=== PATIENT | female | born 1950 | race Caucasian/White ===

== ENCOUNTER → 2016-12-01 | Outpatient (CLI) | payer MEDICARE ==
[~2016-12-01] MED LIST: ASPI-496 PO; CETI1TAB6 PO; CHOL10002 PO; CLON-365 PO; CLON1PAT2 PO; DESV100T PO; FESO8TAB PO; GABA800T2 PO; HYDR4TAB PO; INSU100I29 SC; INSU100V14 SC; LISI-167 PO; METF500T4 PO; MONT10TA6 PO; QUET300T5 PO; REGADENOSON 0.4 MG/5 ML SYRINGE ONE; ROSU10TA PO
== END | disposition home or self-care (01) ==
LOC: CFH 07:30
PROVIDERS: ATTEND Internal Medicine Cardiovascular Disease
DX: I08.1 Rheumatic disorders of both mitral and tricuspid valves (principal); E11.9 Type 2 diabetes mellitus without complications; F17.200 Nicotine dependence, unspecified, uncomplicated
CPT/HCPCS: 78452; 93017; 93306; A9502; J2785

== ENCOUNTER 2018-09-22 11:37 | Outpatient (CLI) | payer MEDICARE ==
[~2018-09-22 11:37] MED LIST changes: -CLON-365 PO; +CLON1TAB11 PO; -GABA800T2 PO; +GABA800T5 PO; +METF500T17 PO; -METF500T4 PO; -REGADENOSON 0.4 MG/5 ML SYRINGE ONE; -ROSU10TA PO; +ROSU10TA2 PO
== END 2018-09-22 23:59 | disposition home or self-care (01) ==
LOC: RAD 11:37
PROVIDERS: ATTEND Physician Assistant Surgical
DX: Z02.9 Encounter for administrative examinations, unspecified (principal)

== ENCOUNTER 2018-09-27 11:20 | Outpatient (CLI) | payer MEDICARE ==
[2018-09-27] MEDS ORDERED: OMNIPAQUE 350 MG/ML, 100ML BOTTLE ONE (13:32)
== END 2018-09-27 23:59 | disposition home or self-care (01) ==
LOC: RAD 11:20
PROVIDERS: ATTEND Physician Assistant Surgical
DX: K43.5 Parastomal hernia without obstruction or gangrene (principal); K46.9 Unspecified abdominal hernia without obstruction or gangrene
CPT/HCPCS: 74177; Q9967

== ENCOUNTER → 2018-10-25 | Outpatient (CLI) | payer MEDICARE | END | disposition home or self-care (01) | LOC: WOUND 12:52 | PROVIDERS: ATTEND Internal Medicine | DX: T81.31XD Disruption of external operation (surgical) wound, not elsewhere classified, subsequent encounter (principal); S31.109D Unspecified open wound of abdominal wall, unspecified quadrant without penetration into peritoneal cavity, subsequent encounter; E11.51 Type 2 diabetes mellitus with diabetic peripheral angiopathy without gangrene; E11.65 Type 2 diabetes mellitus with hyperglycemia; I12.9 Hypertensive chronic kidney disease with stage 1 through stage 4 chronic kidney disease, or unspecified chronic kidney disease; E11.22 Type 2 diabetes mellitus with diabetic chronic kidney disease; N18.3 Chronic kidney disease, stage 3 (moderate); J43.9 Emphysema, unspecified; E78.2 Mixed hyperlipidemia; G89.4 Chronic pain syndrome; E78.5 Hyperlipidemia, unspecified; E78.00 Pure hypercholesterolemia, unspecified; G47.33 Obstructive sleep apnea (adult) (pediatric); K21.9 Gastro-esophageal reflux disease without esophagitis; F31.9 Bipolar disorder, unspecified; F17.200 Nicotine dependence, unspecified, uncomplicated; Z93.2 Ileostomy status; E66.9 Obesity, unspecified; Z68.25 Body mass index [BMI] 25.0-25.9, adult; Z79.4 Long term (current) use of insulin; Z90.49 Acquired absence of other specified parts of digestive tract; Z90.710 Acquired absence of both cervix and uterus; X58.XXXD Exposure to other specified factors, subsequent encounter; Y83.8 Other surgical procedures as the cause of abnormal reaction of the patient, or of later complication, without mention of misadventure at the time of the procedure | CPT/HCPCS: 97597; G0463 ==

== ENCOUNTER 2018-12-16 13:44 | Emergency (ER) | payer MEDICARE ==
[~2018-12-16] VITALS: Ht 170.2 cm; Wt 70.0 kg
[2018-12-16 16:17] VITALS: BP 121/58
== END 2018-12-16 17:25 | disposition left against medical advice (07) ==
LOC: ED 17:19
DX: R10.84 Generalized abdominal pain (principal); R11.2 Nausea with vomiting, unspecified; R19.7 Diarrhea, unspecified; R10.13 Epigastric pain; E11.9 Type 2 diabetes mellitus without complications; J44.9 Chronic obstructive pulmonary disease, unspecified
CPT/HCPCS: 36415; 74177; 80053; 81001; 83690; 85025; 85610; 99284; Q9967

== ENCOUNTER 2019-05-11 15:07 | Emergency (ER) | payer MEDICARE ==
[~2019-05-11] VITALS: Ht 170.2 cm; Wt 72.7 kg
[~2019-05-11 15:07] MED LIST changes: +GABA-827 PO; +NICO-487 TD; +TRINTELLIX
[2019-05-11 15:43] VITALS: BP 125/44
== END 2019-05-11 17:19 | disposition home or self-care (01) ==
LOC: ED 17:13
DX: S32.2XXA Fracture of coccyx, initial encounter for closed fracture (principal); M54.5 Low back pain; J44.9 Chronic obstructive pulmonary disease, unspecified; E11.9 Type 2 diabetes mellitus without complications; W01.0XXA Fall on same level from slipping, tripping and stumbling without subsequent striking against object, initial encounter; Y93.89 Activity, other specified; Y92.89 Other specified places as the place of occurrence of the external cause; Y99.8 Other external cause status
CPT/HCPCS: 72110; 72220; 99283

== ENCOUNTER 2019-08-29 05:20 | Inpatient (IN) | payer MEDICARE ==
[~2019-08-29] VITALS: Ht 170.2 cm; Wt 81.2 kg
[2019-08-29] MEDS ORDERED: HYDROmorphone 1 MG/ML, 1ML INJ ONE ×2 (05:40→06:42)
[2019-08-29] MEDS ORDERED: ONDANSETRON 2MG/ML, 2ML ONE ×3 (05:40→16:59)
[2019-08-29] MEDS: HYDROmorphone 1 MG/ML, 1ML INJ IVPush PRN ×2 (05:42→06:44)
[2019-08-29] MEDS ORDERED: SODIUM CHLORIDE FLUSH 10ML SYR IVF ONE (06:00)
[2019-08-29] MEDS ORDERED: ONDANSETRON 2MG/ML, 2ML IVPush ONE (06:00)
[2019-08-29] MEDS ORDERED: SODIUM CHLORIDE 0.9% 1,000ML IVBOLUS ONE (06:00)
--- NOTE | 2019-08-29 06:00 | NUR ---
PT TO XRAY.
[2019-08-29 06:12] LABS: BASOPHILS # (AUTO) 0.06 x10^3/uL (0-0.1); BASOPHILS % (AUTO) 0 % (0-1); EOSINOPHILS # (AUTO) 0.24 x10^3/uL (0-0.4); EOSINOPHILS % (AUTO) 2 % (1-7); LYMPHOCYTES # (AUTO) 2.38 x10^3/uL (1-3.4); LYMPHOCYTES % (AUTO) 15 % (22-44); MD NO; MEAN CORPUSCULAR HEMOGLOBIN 29.5 pg (27.0-34.8); MEAN CORPUSCULAR HGB CONC 32.7 g/dL (32.4-35.8); MEAN CORPUSCULAR VOLUME 90.3 fL (80-100); MEAN PLATELET VOLUME 7.8 fL (7.4-10.4); MONOCYTES # (AUTO) 0.85 x10^3/uL (0.2-0.8); MONOCYTES % (AUTO) 5 % (2-9); NEUTROPHILS # (AUTO) 12.22 x10^3/uL (1.8-6.8); NEUTROPHILS % (AUTO) 78 % (42-75); PLATELET COUNT 297 x10^3/uL (130-400); RED BLOOD COUNT 5.45 x10^6/uL (3.82-5.3); RED CELL DISTRIBUTION WIDTH 14.1 % (9.6-15.2)
[2019-08-29 06:15] LABS: ALANINE AMINOTRANSFERASE 16 U/L (12-78); ALBUMIN 3.2 g/dL (3.4-5.0); ANION GAP 5 mmol/L (5-15); CALCIUM 9.7 mg/dL (8.5-10.1); CHLORIDE 104 mmol/L (98-107); CREATININE 1.07 mg/dL (0.55-1.02)
[2019-08-29] MEDS ORDERED: LOSA25TA25 PO (06:15)
[2019-08-29] MEDS ORDERED: LORA-445 PO (06:15)
[2019-08-29 06:17] LABS: ALKALINE PHOSPHATASE 80 U/L (45-117); BILIRUBIN,TOTAL 0.4 mg/dL (0.2-1.0); TOTAL PROTEIN 7.1 g/dL (6.4-8.2)
--- NOTE | 2019-08-29 06:39 | NUR ---
PT RESTING ON GURNEY, EVEN UNLABORED RESPIRATIONS. VSS.
--- NOTE | 2019-08-29 06:53 | NUR ---
REPORT FROM SERGEI RAM. ASSUMING CARE AT THIS TIME.
--- NOTE | 2019-08-29 06:57 | NUR ---
PT RESTING IN ROOM WITH LIGHTS DIMMED. VSS. NO NEEDS EXPRESSED. PT STATES DECREASE IN PAIN AFTER LAST PAIN MEDICATION ADMINISTRATION. PT DENIES NEEDS AT THIS TIME. CALL LIGHT WITHIN REACH. ALL RESULTS BACK AT THIS TIME. CHART UP FOR RECHECK.
--- NOTE | 2019-08-29 07:01 | NUR ---
NEW ORDERS RECEIVED FOR ABD CT.
[2019-08-29] MEDS ORDERED: OMNIPAQUE 350 MG/ML, 100ML BOTTLE ONE (08:02)
[2019-08-29] MEDS ORDERED: D5%-0.45% NACL 500 ML IV ONE (08:58)
[2019-08-29] MEDS ORDERED: LIDODERM 5% PATCH TD PRN (09:00)
[2019-08-29 09:30] VITALS: BP 175/83
[2019-08-29] MEDS ORDERED: METOCLOPRAMIDE 5 MG/ML, 2ML IVPush PRN (09:30)
[2019-08-29] MEDS ORDERED: D5%-0.9% NACL 1,000 ML IV SCH (09:30)
[2019-08-29] MEDS ORDERED: LORazepam 0.5MG TABLET PO PRN (09:30)
[2019-08-29] MEDS ORDERED: HYDROmorphone 2 MG/ML, 1ML IVPush PRN (09:30)
[2019-08-29] MEDS ORDERED: ASPIRIN 81 MG TABLET EC PO SCH (09:30)
[2019-08-29] MEDS ORDERED: HEPARIN 5,000 UNITS/ML, 1ML SQ SCH (09:30)
[2019-08-29] MEDS ORDERED: ONDANSETRON 2MG/ML, 2ML IVPush PRN ×2 (09:30→15:00)
[2019-08-29] MEDS ORDERED: hydrALAzine 20 MG/ML, 1ML IVPush PRN (09:30)
[2019-08-29] MEDS ORDERED: ONDANSETRON ODT 4 MG PO PRN (09:30)
[2019-08-29] MEDS ORDERED: LABETALOL 5MG/ML, 20ML IVPush PRN (09:30)
[2019-08-29] MEDS: LOSARTAN 25MG TABLET PO SCH (09:46)
[2019-08-29 09:47] LABS: ALANINE AMINOTRANSFERASE 19 U/L (12-78); ALBUMIN 3.3 g/dL (3.4-5.0)
[2019-08-29] MEDS: OXYcodone IR 5MG TABLET PO PRN (09:47)
[2019-08-29] MEDS: NICOTINE 21 MG/24 HR PATCH.TD24 TD SCH (09:49)
[2019-08-29 09:50] LABS: INTERNATIONAL NORMALIZED RATIO 0.91 (0.93-1.1); PROTHROMBIN TIME 9.6 Seconds (9.6-11.5)
[2019-08-29 09:57] LABS: ALKALINE PHOSPHATASE 77 U/L (45-117); BILIRUBIN,TOTAL 0.3 mg/dL (0.2-1.0); FREE T4 (FREE THYROXINE) 1.08 ng/dL (0.76-1.46)
[2019-08-29 09:58] LABS: BILIRUBIN, DIRECT < 0.1 mg/dL (0.1-0.2); BILIRUBIN,INDIRECT 0.2 mg/dL (0.0-2.0)
[2019-08-29 10:40] VITALS: BP 160/88
[2019-08-29 10:41] VITALS: BP 175/83
[2019-08-29] MEDS: INSULIN LISPRO 100 UNITS/ML, PEN SQ-INSULIN SCH ×3 (10:56→21:55)
[2019-08-29] MEDS: GABAPENTIN 400 MG CAPSULE PO SCH ×3 (11:00→21:00)
[2019-08-29] MEDS ORDERED: CHLORHEXIDINE 15 ML UDC MM STA (11:14)
[2019-08-29] MEDS ORDERED: MIDAZOLAM 1 MG/ML, 2ML ONE ×2 (11:32→18:39)
[2019-08-29] MEDS ORDERED: FENTANYL PF 250 MCG/5ML ONE (11:32)
[2019-08-29] MEDS ORDERED: OXYcodone 5 MG/5 ML ORAL.SOL UDC PO PRN (13:30)
[2019-08-29] MEDS ORDERED: ALBUTEROL SULFATE 2.5 MG/3 ML NPPB PRN (13:30)
[2019-08-29] MEDS ORDERED: KETOROLAC 30 MG/1 ML IV PRN (13:30)
[2019-08-29] MEDS ORDERED: ACETAMINOPHEN 325 MG TABLET PO PRN (13:30)
[2019-08-29] MEDS ORDERED: LABETALOL 5MG/ML, 20ML IV PRN (13:30)
[2019-08-29] MEDS ORDERED: DIAZEPAM 5 MG/ML, 2ML IVPush PRN (13:30)
[2019-08-29] MEDS ORDERED: hydrALAzine 20 MG/ML, 1ML IV PRN (13:30)
[2019-08-29] MEDS ORDERED: PROMETHAZINE 25 MG/ML, 1ML IV PRN (13:30)
[2019-08-29] MEDS ORDERED: MEPERIDINE/PF 25MG/0.5ML IVPush PRN (13:30)
[2019-08-29] MEDS ORDERED: D5%-0.45NACL+KCL 20MEQ 1,000 ML IV SCH (14:47)
[2019-08-29] MEDS ORDERED: NEOSTIGMINE 1 MG/ML, 10ML ONE (15:00)
[2019-08-29] MEDS ORDERED: CEFAZOLIN 1,000 MG ONE (15:00)
[2019-08-29] MEDS ORDERED: PROMETHAZINE 25 MG/ML, 1ML IM PRN (15:00)
[2019-08-29] MEDS ORDERED: DEXAMETHASONE 4 MG/ML, 1ML ONE (15:00)
[2019-08-29] MEDS ORDERED: ROCURONIUM 10MG/ML,5ML ONE (15:00)
[2019-08-29] MEDS ORDERED: SUGAMMADEX 200 MG/2 ML IVPush ONE (15:00)
[2019-08-29] MEDS ORDERED: GLYCOPYRROLATE 0.2MG/1ML, 5ML ONE (15:00)
[2019-08-29] MEDS ORDERED: PROPOFOL 10 MG/ML, 20ML ONE (15:00)
[2019-08-29] MEDS ORDERED: SUCCINYLCHOLINE 20 MG/ML, 10ML ONE (15:00)
[2019-08-29] MEDS: FENTANYL PF 100 MCG/2ML IV PRN ×2 (15:12→15:35)
[2019-08-29] MEDS ORDERED: HYDROmorphone 2 MG/ML, 1ML ONE (15:12)
[2019-08-29] MEDS ORDERED: FENTANYL PF 100 MCG/2ML ONE (15:12)
[2019-08-29] MEDS: HYDROmorphone 2 MG/ML, 1ML IVPush PRN ×3 (15:18→15:59)
[2019-08-29] MEDS ORDERED: MEPERIDINE/PF 25MG/ML,1ML ONE (16:04)
[2019-08-29] MEDS ORDERED: PROMETHAZINE 25 MG/ML, 1ML ONE (17:25)
[2019-08-29] MEDS ORDERED: PROPOFOL 100 ML IV ONE (18:43)
[2019-08-29] MEDS: PROPOFOL 100 ML IV PRN (19:00)
[2019-08-29] MEDS: LIDODERM REMOVE PATCH NOTE XX SCH (21:00)
[2019-08-29] MEDS: SODIUM CHLORIDE 0.9% 1,000 ML IV SCH (21:08)
[2019-08-30] MEDS: CEFOTETAN PMX 1GM/50ML 50 ML IVPB SCH ×3 (00:04→23:48)
[2019-08-30 03:42] LABS: MEAN CORPUSCULAR HEMOGLOBIN 29.7 pg (27.0-34.8); MEAN CORPUSCULAR HGB CONC 32.7 g/dL (32.4-35.8); MEAN CORPUSCULAR VOLUME 90.6 fL (80-100); MEAN PLATELET VOLUME 7.7 fL (7.4-10.4); PLATELET COUNT 255 x10^3/uL (130-400); RED BLOOD COUNT 4.88 x10^6/uL (3.82-5.3); RED CELL DISTRIBUTION WIDTH 14.4 % (9.6-15.2)
[2019-08-30 03:51] LABS: ALANINE AMINOTRANSFERASE 19 U/L (12-78); ALBUMIN 2.3 g/dL (3.4-5.0); ANION GAP 7 mmol/L (5-15); CALCIUM 8.2 mg/dL (8.5-10.1); CHLORIDE 109 mmol/L (98-107); CREATININE 1.48 mg/dL (0.55-1.02)
[2019-08-30 03:53] LABS: ALKALINE PHOSPHATASE 50 U/L (45-117); BILIRUBIN,TOTAL 0.6 mg/dL (0.2-1.0); TOTAL PROTEIN 5.5 g/dL (6.4-8.2)
[2019-08-30 04:02] LABS: MICROSCOPIC AUTO
[2019-08-30 04:03] LABS: CULTURE INDICATED? NO
[2019-08-30 04:16] LABS: MD YES
[2019-08-30 04:17] LABS: BAND#(MANUAL) 2.96 x10^3/uL; BANDS%(MANUAL) 15 % (0-7); LYMPH#(MANUAL) 0.79 x10^3/uL (1-3.4); LYMPHS% (MANUAL) 4 % (22-44); METAMYELOCYTES# (MANUAL) 0.99 x10^3/uL (0-0); METAMYELOCYTES% (MANUAL) 5 % (0-1); MONOS#(MANUAL) 1.38 x10^3/uL (0.3-2.7); MONOS% (MANUAL) 7 % (2-9); REACTIVE LYMPHS % (MANUAL) 1 % (0-0); SEGS% (MANUAL) 68 % (42-75)
[2019-08-30 04:18] LABS: <PLATELET ESTIMATE> ADEQUATE; <PLT MORPHOLOGY> NORMAL PLT MORPH; <RBC MORPHOLOGY> NORMAL
[2019-08-30] MEDS: FENTANYL PF 100 MCG/2ML IVPush PRN ×2 (04:42→07:43)
[2019-08-30] MEDS: GABAPENTIN 400 MG CAPSULE PO SCH ×4 (05:21→20:18)
[2019-08-30] MEDS: SODIUM CHLORIDE 0.9% 1,000 ML IV SCH ×2 (05:57→16:56)
[2019-08-30] MEDS: PROPOFOL 100 ML IV PRN (05:58)
[2019-08-30] MEDS: INSULIN LISPRO 100 UNITS/ML, PEN SQ-INSULIN SCH (05:59)
[2019-08-30] MEDS ORDERED: MAGNESIUM SULFATE PMX 2GM/50ML 50 ML IV ONE (06:30)
[2019-08-30] MEDS: INSULIN REGULAR 100 UNITS/ML, 3ML VIAL SQ-INSULIN SCH ×4 (06:38→20:18)
[2019-08-30] MEDS: NICOTINE 21 MG/24 HR PATCH.TD24 TD SCH (08:44)
[2019-08-30] MEDS: LOSARTAN 25MG TABLET PO SCH (09:00)
[2019-08-30] MEDS: morphine SULFATE 10 MG/ML, 1ML IVPush PRN ×2 (13:21→17:11)
[2019-08-30] MEDS: LIDODERM REMOVE PATCH NOTE XX SCH (20:19)
[2019-08-31] MEDS: morphine SULFATE 10 MG/ML, 1ML IVPush PRN ×4 (00:19→20:44)
[2019-08-31] MEDS: SODIUM CHLORIDE 0.9% 1,000 ML IV SCH (03:26)
[2019-08-31] MEDS: GABAPENTIN 400 MG CAPSULE PO SCH ×5 (04:08→20:46)
[2019-08-31 04:13] LABS: MEAN CORPUSCULAR HEMOGLOBIN 29.3 pg (27.0-34.8); MEAN CORPUSCULAR HGB CONC 32.6 g/dL (32.4-35.8); MEAN CORPUSCULAR VOLUME 90.1 fL (80-100); MEAN PLATELET VOLUME 8.2 fL (7.4-10.4); PLATELET COUNT 228 x10^3/uL (130-400); RED BLOOD COUNT 4.62 x10^6/uL (3.82-5.3); RED CELL DISTRIBUTION WIDTH 14.8 % (9.6-15.2)
[2019-08-31 04:26] LABS: ANION GAP 5 mmol/L (5-15); CALCIUM 8.3 mg/dL (8.5-10.1); CHLORIDE 111 mmol/L (98-107); CREATININE 1.11 mg/dL (0.55-1.02)
[2019-08-31 04:49] LABS: MD YES
[2019-08-31 05:09] LABS: <PLATELET ESTIMATE> ADEQUATE; <PLT MORPHOLOGY> NORMAL PLT MORPH; <RBC MORPHOLOGY> NORMAL; BAND#(MANUAL) 3.32 x10^3/uL; BANDS%(MANUAL) 17 % (0-7); EOS#(MANUAL) 0.39 x10^3/uL (0.0-0.4); EOS% (MANUAL) 2 % (1-7); LYMPH#(MANUAL) 0.59 x10^3/uL (1-3.4); LYMPHS% (MANUAL) 3 % (22-44); MONOS#(MANUAL) 1.56 x10^3/uL (0.3-2.7); MONOS% (MANUAL) 8 % (2-9); SEG#(MANUAL) 13.65 x10^3/uL (1.8-6.8); SEGS% (MANUAL) 70 % (42-75)
[2019-08-31] MEDS: INSULIN REGULAR 100 UNITS/ML, 3ML VIAL SQ-INSULIN SCH ×4 (06:38→20:20)
[2019-08-31] MEDS: FUROSEMIDE 20 MG/2 ML IV SCH ×2 (08:27→17:11)
[2019-08-31] MEDS: NICOTINE 21 MG/24 HR PATCH.TD24 TD SCH (08:28)
[2019-08-31] MEDS: METRONIDAZOLE PMX 500MG/100ML 100 ML IV SCH ×2 (10:13→17:10)
[2019-08-31] MEDS: CEFOTETAN PMX 1GM/50ML 50 ML IVPB SCH (11:47)
[2019-08-31 14:31] VITALS: BP 122/64
[2019-08-31] MEDS: PIPERACILLIN/TAZO/PMX 3.375GM 50 ML IV SCH ×2 (16:24→22:42)
[2019-08-31 18:49] VITALS: BP 123/64
[2019-08-31] MEDS: LIDODERM REMOVE PATCH NOTE XX SCH (20:44)
[2019-09-01 00:25] VITALS: BP 134/66
[2019-09-01] MEDS: METRONIDAZOLE PMX 500MG/100ML 100 ML IV SCH (02:16)
[2019-09-01] MEDS: GABAPENTIN 400 MG CAPSULE PO SCH ×4 (04:12→20:50)
[2019-09-01] MEDS: PIPERACILLIN/TAZO/PMX 3.375GM 50 ML IV SCH ×4 (04:37→23:32)
[2019-09-01] MEDS: morphine SULFATE 10 MG/ML, 1ML IVPush PRN ×3 (04:37→21:42)
[2019-09-01 04:59] LABS: MEAN CORPUSCULAR HEMOGLOBIN 29.7 pg (27.0-34.8); MEAN CORPUSCULAR VOLUME 90.1 fL (80-100); MEAN PLATELET VOLUME 8.2 fL (7.4-10.4); PLATELET COUNT 217 x10^3/uL (130-400); RED BLOOD COUNT 4.26 x10^6/uL (3.82-5.3); RED CELL DISTRIBUTION WIDTH 14.3 % (9.6-15.2)
[2019-09-01 05:05] LABS: ANION GAP 9 mmol/L (5-15); CALCIUM 8.5 mg/dL (8.5-10.1); CHLORIDE 110 mmol/L (98-107)
[2019-09-01 05:06] LABS: CREATININE 1.01 mg/dL (0.55-1.02)
[2019-09-01 05:42] LABS: MD YES
[2019-09-01 05:44] LABS: <PLATELET ESTIMATE> ADEQUATE; <PLT MORPHOLOGY> NORMAL PLT MORPH; <RBC MORPHOLOGY> NORMAL; BAND#(MANUAL) 1.15 x10^3/uL; BANDS%(MANUAL) 6 % (0-7); EOS#(MANUAL) 0.19 x10^3/uL (0.0-0.4); EOS% (MANUAL) 1 % (1-7); LYMPH#(MANUAL) 1.92 x10^3/uL (1-3.4); LYMPHS% (MANUAL) 10 % (22-44); MONOS#(MANUAL) 0.58 x10^3/uL (0.3-2.7); MONOS% (MANUAL) 3 % (2-9); SEG#(MANUAL) 15.36 x10^3/uL (1.8-6.8); SEGS% (MANUAL) 80 % (42-75)
[2019-09-01 07:15] VITALS: BP 123/51
[2019-09-01] MEDS ORDERED: POTASSIUM CHLORIDE 10 MEQ in D5%-0.45% NACL 1,000 ML IV SCH (08:00)
[2019-09-01] MEDS: FUROSEMIDE 20 MG/2 ML IV SCH ×2 (09:16→17:44)
[2019-09-01] MEDS: NICOTINE 21 MG/24 HR PATCH.TD24 TD SCH (09:16)
[2019-09-01] MEDS: POTASSIUM CHLORIDE 10 MEQ in D5%-0.45% NACL 1,000 ML IV SCH (09:57)
[2019-09-01] MEDS: OXYcodone IR 5MG TABLET PO PRN ×2 (09:57→15:52)
[2019-09-01] MEDS: INSULIN REGULAR 100 UNITS/ML, 3ML VIAL SQ-INSULIN SCH ×4 (09:58→20:56)
[2019-09-01 12:02] VITALS: BP 135/71
[2019-09-01] MEDS: POTASSIUM CHLORIDE 20 MEQ TAB.ER.PRT PO SCH (17:42)
[2019-09-01 19:23] VITALS: BP 124/66
[2019-09-01] MEDS: LIDODERM REMOVE PATCH NOTE XX SCH (20:50)
[2019-09-02 00:21] VITALS: BP 132/73
[2019-09-02] MEDS: POTASSIUM CHLORIDE 10 MEQ in D5%-0.45% NACL 1,000 ML IV SCH (00:26)
[2019-09-02] MEDS: morphine SULFATE 10 MG/ML, 1ML IVPush PRN (02:13)
[2019-09-02] MEDS: PIPERACILLIN/TAZO/PMX 3.375GM 50 ML IV SCH ×3 (05:08→20:41)
[2019-09-02] MEDS: GABAPENTIN 400 MG CAPSULE PO SCH ×4 (05:08→20:42)
[2019-09-02 05:29] LABS: MEAN CORPUSCULAR HEMOGLOBIN 29.2 pg (27.0-34.8); MEAN CORPUSCULAR HGB CONC 32.3 g/dL (32.4-35.8); MEAN CORPUSCULAR VOLUME 90.6 fL (80-100); MEAN PLATELET VOLUME 7.7 fL (7.4-10.4); PLATELET COUNT 262 x10^3/uL (130-400); RED BLOOD COUNT 4.71 x10^6/uL (3.82-5.3); RED CELL DISTRIBUTION WIDTH 14.3 % (9.6-15.2)
[2019-09-02 05:40] LABS: ANION GAP 6 mmol/L (5-15); CALCIUM 9.1 mg/dL (8.5-10.1); CHLORIDE 104 mmol/L (98-107)
[2019-09-02 05:41] LABS: CREATININE 1.22 mg/dL (0.55-1.02)
[2019-09-02 06:11] LABS: MD YES
[2019-09-02 06:12] LABS: BAND#(MANUAL) 0.19 x10^3/uL; BANDS%(MANUAL) 1 % (0-7); EOS#(MANUAL) 0.74 x10^3/uL (0.0-0.4); EOS% (MANUAL) 4 % (1-7); LYMPH#(MANUAL) 1.11 x10^3/uL (1-3.4); LYMPHS% (MANUAL) 6 % (22-44); METAMYELOCYTES# (MANUAL) 0.19 x10^3/uL (0-0); METAMYELOCYTES% (MANUAL) 1 % (0-1); MONOS#(MANUAL) 1.48 x10^3/uL (0.3-2.7); MONOS% (MANUAL) 8 % (2-9); SEGS% (MANUAL) 80 % (42-75)
[2019-09-02 06:13] LABS: <PLATELET ESTIMATE> ADEQUATE; <PLT MORPHOLOGY> NORMAL PLT MORPH; <RBC MORPHOLOGY> NORMAL
[2019-09-02 06:38] VITALS: BP 119/66
[2019-09-02] MEDS: INSULIN REGULAR 100 UNITS/ML, 3ML VIAL SQ-INSULIN SCH ×4 (08:20→20:43)
[2019-09-02] MEDS: POTASSIUM CHLORIDE 20 MEQ TAB.ER.PRT PO SCH ×2 (08:21→17:19)
[2019-09-02] MEDS: FUROSEMIDE 20 MG/2 ML IV SCH ×2 (08:21→17:19)
[2019-09-02] MEDS: NICOTINE 21 MG/24 HR PATCH.TD24 TD SCH (08:21)
[2019-09-02] MEDS: OXYcodone IR 5MG TABLET PO PRN (08:22)
[2019-09-02] MEDS ORDERED: MAGNESIUM SULFATE PMX 2GM/50ML 50 ML IV ONE (10:00)
[2019-09-02 15:00] VITALS: BP 128/80
[2019-09-02] MEDS ORDERED: POTASSIUM PHOSPHATE 22 MEQ in SODIUM CHLORIDE 0.9% 500 ML IV ONE (16:00)
[2019-09-02 19:47] VITALS: BP 109/63
[2019-09-02] MEDS: LIDODERM REMOVE PATCH NOTE XX SCH (20:43)
[2019-09-03 01:46] VITALS: BP 146/72
[2019-09-03] MEDS: PIPERACILLIN/TAZO/PMX 3.375GM 50 ML IV SCH ×4 (02:11→19:55)
[2019-09-03 05:06] LABS: ANION GAP 6 mmol/L (5-15); CALCIUM 8.8 mg/dL (8.5-10.1); CHLORIDE 105 mmol/L (98-107); CREATININE 1.08 mg/dL (0.55-1.02)
[2019-09-03] MEDS: GABAPENTIN 400 MG CAPSULE PO SCH ×4 (05:57→21:52)
[2019-09-03] MEDS: OXYcodone IR 5MG TABLET PO PRN (06:05)
[2019-09-03 06:45] VITALS: BP 140/69
[2019-09-03] MEDS ORDERED: POTASSIUM CHLORIDE 10 MEQ in D5%-0.45% NACL 1,000 ML IV SCH (08:00)
[2019-09-03] MEDS: POTASSIUM CHLORIDE 20 MEQ TAB.ER.PRT PO SCH ×2 (08:14→17:15)
[2019-09-03] MEDS: NICOTINE 21 MG/24 HR PATCH.TD24 TD SCH (08:14)
[2019-09-03] MEDS: INSULIN REGULAR 100 UNITS/ML, 3ML VIAL SQ-INSULIN SCH ×4 (08:15→20:20)
[2019-09-03] MEDS: morphine SULFATE 10 MG/ML, 1ML IVPush PRN (08:15)
[2019-09-03] MEDS: FUROSEMIDE 20 MG/2 ML IV SCH ×2 (08:16→17:16)
--- NOTE | 2019-09-03 10:55 | NUR ---
Rec: EXTERMINATOR HELPER intervention in [facility]. Addendum: 09/03/19 at 1056 by Fatoumata FUENTES Amended: Links added.
[2019-09-03] MEDS: NEUTRA PHOS K 250 MG TABLET PO SCH ×3 (11:40→20:20)
[2019-09-03] MEDS ORDERED: FUROSEMIDE 40 MG/4 ML IV ONE (13:00)
[2019-09-03 15:59] VITALS: BP 103/55
[2019-09-03 20:16] VITALS: BP 116/61
[2019-09-03] MEDS: LIDODERM REMOVE PATCH NOTE XX SCH (21:53)
[2019-09-04 01:11] VITALS: BP 137/69
[2019-09-04] MEDS: PIPERACILLIN/TAZO/PMX 3.375GM 50 ML IV SCH ×4 (01:36→20:47)
[2019-09-04] MEDS: OXYcodone IR 5MG TABLET PO PRN ×3 (05:23→17:03)
[2019-09-04] MEDS: GABAPENTIN 400 MG CAPSULE PO SCH ×4 (05:23→20:47)
[2019-09-04 06:09] LABS: MEAN CORPUSCULAR HEMOGLOBIN 29.6 pg (27.0-34.8); MEAN CORPUSCULAR VOLUME 89.5 fL (80-100); MEAN PLATELET VOLUME 7.7 fL (7.4-10.4); PLATELET COUNT 327 x10^3/uL (130-400); RED CELL DISTRIBUTION WIDTH 14.7 % (9.6-15.2)
[2019-09-04 06:16] LABS: ANION GAP 5 mmol/L (5-15); CALCIUM 8.8 mg/dL (8.5-10.1); CHLORIDE 106 mmol/L (98-107); CREATININE 1.15 mg/dL (0.55-1.02)
[2019-09-04 06:47] LABS: MD YES
[2019-09-04 06:48] LABS: EOS#(MANUAL) 0.13 x10^3/uL (0.0-0.4); EOS% (MANUAL) 1 % (1-7); LYMPHS% (MANUAL) 12 % (22-44); MONOS#(MANUAL) 1.38 x10^3/uL (0.3-2.7); MONOS% (MANUAL) 11 % (2-9)
[2019-09-04 06:50] LABS: <PLATELET ESTIMATE> ADEQUATE; <RBC MORPHOLOGY> NORMAL; BAND#(MANUAL) 1.13 x10^3/uL; BANDS%(MANUAL) 9 % (0-7); SEG#(MANUAL) 8.38 x10^3/uL (1.8-6.8); SEGS% (MANUAL) 67 % (42-75)
[2019-09-04 06:51] LABS: <PLT MORPHOLOGY> NORMAL PLT MORPH
[2019-09-04 07:21] VITALS: BP 126/59
[2019-09-04] MEDS: NICOTINE 21 MG/24 HR PATCH.TD24 TD SCH (08:05)
[2019-09-04] MEDS: FUROSEMIDE 20 MG/2 ML IV SCH ×3 (08:05→17:54)
[2019-09-04] MEDS: POTASSIUM CHLORIDE 20 MEQ TAB.ER.PRT PO SCH ×2 (08:06→16:36)
[2019-09-04] MEDS: NEUTRA PHOS K 250 MG TABLET PO SCH ×3 (08:06→20:47)
[2019-09-04] MEDS: INSULIN REGULAR 100 UNITS/ML, 3ML VIAL SQ-INSULIN SCH ×4 (08:06→21:11)
[2019-09-04] MEDS ORDERED: MAGNESIUM SULFATE PMX 4GM/100M 100 ML IV ONE (11:30)
[2019-09-04 12:47] VITALS: BP 124/66
--- NOTE | 2019-09-04 13:24 | NUR ---
Rec: d/c to previous living situation. Addendum: 09/04/19 at 1325 by Fatoumata FUENTES Amended: Links added.
[2019-09-04 19:24] VITALS: BP 115/62
[2019-09-04] MEDS: LIDODERM REMOVE PATCH NOTE XX SCH (22:00)
[2019-09-05 01:26] VITALS: BP 110/64
[2019-09-05] MEDS: PIPERACILLIN/TAZO/PMX 3.375GM 50 ML IV SCH ×4 (03:18→22:10)
[2019-09-05] MEDS: OXYcodone IR 5MG TABLET PO PRN (03:19)
[2019-09-05] MEDS: GABAPENTIN 400 MG CAPSULE PO SCH ×4 (05:30→22:11)
[2019-09-05 05:52] LABS: ANION GAP 4 mmol/L (5-15); CALCIUM 8.6 mg/dL (8.5-10.1); CHLORIDE 106 mmol/L (98-107)
[2019-09-05 06:11] LABS: MEAN CORPUSCULAR HEMOGLOBIN 29.6 pg (27.0-34.8); MEAN CORPUSCULAR HGB CONC 32.8 g/dL (32.4-35.8); MEAN CORPUSCULAR VOLUME 90.1 fL (80-100); MEAN PLATELET VOLUME 7.8 fL (7.4-10.4); PLATELET COUNT 342 x10^3/uL (130-400); RED BLOOD COUNT 3.86 x10^6/uL (3.82-5.3); RED CELL DISTRIBUTION WIDTH 14.6 % (9.6-15.2)
[2019-09-05 06:41] LABS: MD YES
[2019-09-05 06:45] LABS: BAND#(MANUAL) 0.85 x10^3/uL; BANDS%(MANUAL) 6 % (0-7); EOS#(MANUAL) 1.13 x10^3/uL (0.0-0.4); EOS% (MANUAL) 8 % (1-7); LYMPH#(MANUAL) 1.83 x10^3/uL (1-3.4); LYMPHS% (MANUAL) 13 % (22-44); METAMYELOCYTES# (MANUAL) 0.56 x10^3/uL (0-0); METAMYELOCYTES% (MANUAL) 4 % (0-1); MONOS#(MANUAL) 1.13 x10^3/uL (0.3-2.7); MONOS% (MANUAL) 8 % (2-9); MYELOCYTES# (MANUAL) 0.14 x10^3/uL (0-0); MYELOCYTES% (MANUAL) 1 % (0-0); SEG#(MANUAL) 8.46 x10^3/uL (1.8-6.8); SEGS% (MANUAL) 60 % (42-75)
[2019-09-05 06:48] LABS: <PLATELET ESTIMATE> ADEQUATE; <PLT MORPHOLOGY> NORMAL PLT MORPH
[2019-09-05 06:50] LABS: <RBC MORPHOLOGY> NORMAL
[2019-09-05 06:55] VITALS: BP 101/52
[2019-09-05] MEDS: POTASSIUM CHLORIDE 20 MEQ TAB.ER.PRT PO SCH ×4 (08:06→22:11)
[2019-09-05] MEDS: FUROSEMIDE 20 MG/2 ML IV SCH ×2 (08:06→16:10)
[2019-09-05] MEDS: NICOTINE 21 MG/24 HR PATCH.TD24 TD SCH ×2 (08:06→23:02)
[2019-09-05] MEDS: NEUTRA PHOS K 250 MG TABLET PO SCH (08:06)
[2019-09-05] MEDS: INSULIN REGULAR 100 UNITS/ML, 3ML VIAL SQ-INSULIN SCH ×4 (08:07→22:12)
[2019-09-05 16:11] VITALS: BP 130/62
[2019-09-05 19:33] VITALS: BP 125/68
[2019-09-05] MEDS: LIDODERM REMOVE PATCH NOTE XX SCH (21:00)
[2019-09-06 01:47] VITALS: BP 112/55
[2019-09-06] MEDS: PIPERACILLIN/TAZO/PMX 3.375GM 50 ML IV SCH ×4 (04:06→22:04)
[2019-09-06 04:47] LABS: MEAN CORPUSCULAR HEMOGLOBIN 29.4 pg (27.0-34.8); MEAN CORPUSCULAR HGB CONC 32.3 g/dL (32.4-35.8); MEAN CORPUSCULAR VOLUME 90.8 fL (80-100); MEAN PLATELET VOLUME 7.5 fL (7.4-10.4); PLATELET COUNT 406 x10^3/uL (130-400); RED BLOOD COUNT 3.91 x10^6/uL (3.82-5.3); RED CELL DISTRIBUTION WIDTH 14.7 % (9.6-15.2)
[2019-09-06] MEDS: GABAPENTIN 400 MG CAPSULE PO SCH ×4 (04:57→21:00)
[2019-09-06 04:58] LABS: ANION GAP 1 mmol/L (5-15); CALCIUM 8.9 mg/dL (8.5-10.1); CHLORIDE 107 mmol/L (98-107)
[2019-09-06 05:49] LABS: MD YES
[2019-09-06 05:51] LABS: EOS#(MANUAL) 0.18 x10^3/uL (0.0-0.4); EOS% (MANUAL) 1 % (1-7); LYMPH#(MANUAL) 2.99 x10^3/uL (1-3.4); LYMPHS% (MANUAL) 17 % (22-44); MONOS#(MANUAL) 2.11 x10^3/uL (0.3-2.7); MONOS% (MANUAL) 12 % (2-9); REACTIVE LYMPHS # (MANUAL) 0.18 x10^3/uL (0-0); REACTIVE LYMPHS % (MANUAL) 1 % (0-0); SEG#(MANUAL) 12.14 x10^3/uL (1.8-6.8); SEGS% (MANUAL) 69 % (42-75)
[2019-09-06 05:52] LABS: <PLATELET ESTIMATE> ADEQUATE; <PLT MORPHOLOGY> NORMAL PLT MORPH; <RBC MORPHOLOGY> NORMAL
[2019-09-06 06:42] VITALS: BP 103/52
[2019-09-06] MEDS: INSULIN REGULAR 100 UNITS/ML, 3ML VIAL SQ-INSULIN SCH ×4 (07:00→20:41)
[2019-09-06] MEDS: FUROSEMIDE 20 MG/2 ML IV SCH ×2 (07:30→17:02)
[2019-09-06] MEDS: NICOTINE 21 MG/24 HR PATCH.TD24 TD SCH (07:45)
[2019-09-06] MEDS: POTASSIUM CHLORIDE 20 MEQ TAB.ER.PRT PO SCH ×3 (07:53→20:42)
[2019-09-06 13:27] VITALS: BP 124/60
[2019-09-06 19:55] VITALS: BP 99/43
[2019-09-06] MEDS: LIDODERM REMOVE PATCH NOTE XX SCH (21:00)
[2019-09-07 01:28] VITALS: BP 113/54
[2019-09-07] MEDS: PIPERACILLIN/TAZO/PMX 3.375GM 50 ML IV SCH ×4 (03:49→21:25)
[2019-09-07 05:58] LABS: MEAN CORPUSCULAR HEMOGLOBIN 29.8 pg (27.0-34.8); MEAN CORPUSCULAR HGB CONC 33.2 g/dL (32.4-35.8); MEAN CORPUSCULAR VOLUME 89.8 fL (80-100); MEAN PLATELET VOLUME 7.5 fL (7.4-10.4); PLATELET COUNT 444 x10^3/uL (130-400); RED BLOOD COUNT 3.79 x10^6/uL (3.82-5.3); RED CELL DISTRIBUTION WIDTH 14.2 % (9.6-15.2)
[2019-09-07] MEDS: GABAPENTIN 400 MG CAPSULE PO SCH ×4 (06:00→20:04)
[2019-09-07 06:04] LABS: ALBUMIN 1.8 g/dL (3.4-5.0); ANION GAP 2 mmol/L (5-15); CHLORIDE 105 mmol/L (98-107); CREATININE 1.05 mg/dL (0.55-1.02)
[2019-09-07 06:26] LABS: BASOPHILS # (AUTO) 0.07 x10^3/uL (0-0.1); BASOPHILS % (AUTO) 0 % (0-1); EOSINOPHILS # (AUTO) 0.47 x10^3/uL (0-0.4); EOSINOPHILS % (AUTO) 2 % (1-7); LYMPHOCYTES % (AUTO) 9 % (22-44); MD SCAN; MONOCYTES % (AUTO) 9 % (2-9); NEUTROPHILS # (AUTO) 16.06 x10^3/uL (1.8-6.8); NEUTROPHILS % (AUTO) 79 % (42-75)
[2019-09-07 06:33] VITALS: BP 119/69
[2019-09-07] MEDS: INSULIN REGULAR 100 UNITS/ML, 3ML VIAL SQ-INSULIN SCH ×4 (08:08→20:08)
[2019-09-07] MEDS: FUROSEMIDE 20 MG/2 ML IV SCH ×2 (08:09→16:23)
[2019-09-07] MEDS: POTASSIUM CHLORIDE 20 MEQ TAB.ER.PRT PO SCH ×3 (08:09→20:04)
[2019-09-07] MEDS: NICOTINE 21 MG/24 HR PATCH.TD24 TD SCH (08:12)
[2019-09-07] MEDS ORDERED: MAGNESIUM SULFATE PMX 2GM/50ML 50 ML IV ONE (09:30)
[2019-09-07] MEDS ORDERED: OMNIPAQUE 350 MG/ML, 100ML BOTTLE ONE (12:14)
[2019-09-07 12:35] VITALS: BP 95/49
[2019-09-07] MEDS ORDERED: LIDOCAINE 1%, 10ML ONE (13:18)
[2019-09-07] MEDS: LIDODERM REMOVE PATCH NOTE XX SCH (20:10)
[2019-09-07 20:20] VITALS: BP 124/71
[2019-09-08 01:33] VITALS: BP 109/76
[2019-09-08] MEDS: PIPERACILLIN/TAZO/PMX 3.375GM 50 ML IV SCH ×2 (03:59→11:40)
[2019-09-08] MEDS: GABAPENTIN 400 MG CAPSULE PO SCH ×2 (06:02→11:40)
[2019-09-08 06:13] LABS: ALBUMIN 1.8 g/dL (3.4-5.0); ANION GAP 4 mmol/L (5-15); CALCIUM 8.8 mg/dL (8.5-10.1); CHLORIDE 100 mmol/L (98-107); CREATININE 1.18 mg/dL (0.55-1.02)
[2019-09-08 06:17] LABS: MEAN CORPUSCULAR HEMOGLOBIN 29.7 pg (27.0-34.8); MEAN CORPUSCULAR HGB CONC 33.1 g/dL (32.4-35.8); MEAN CORPUSCULAR VOLUME 89.7 fL (80-100); MEAN PLATELET VOLUME 7.6 fL (7.4-10.4); PLATELET COUNT 514 x10^3/uL (130-400); RED BLOOD COUNT 3.76 x10^6/uL (3.82-5.3); RED CELL DISTRIBUTION WIDTH 14.6 % (9.6-15.2)
[2019-09-08 07:11] LABS: BASOPHILS # (AUTO) 0.02 x10^3/uL (0-0.1); BASOPHILS % (AUTO) 0 % (0-1); EOSINOPHILS # (AUTO) 0.48 x10^3/uL (0-0.4); EOSINOPHILS % (AUTO) 3 % (1-7); LYMPHOCYTES # (AUTO) 2.13 x10^3/uL (1-3.4); LYMPHOCYTES % (AUTO) 12 % (22-44); MD SCAN; MONOCYTES # (AUTO) 1.51 x10^3/uL (0.2-0.8); MONOCYTES % (AUTO) 8 % (2-9); NEUTROPHILS % (AUTO) 77 % (42-75)
[2019-09-08 08:15] VITALS: BP 111/65
[2019-09-08] MEDS: INSULIN REGULAR 100 UNITS/ML, 3ML VIAL SQ-INSULIN SCH ×2 (08:16→12:29)
[2019-09-08] MEDS: FUROSEMIDE 20 MG/2 ML IV SCH (08:16)
[2019-09-08] MEDS: POTASSIUM CHLORIDE 20 MEQ TAB.ER.PRT PO SCH (08:17)
[2019-09-08] MEDS: NICOTINE 21 MG/24 HR PATCH.TD24 TD SCH (08:17)
== END 2019-09-08 14:24 | disposition home health service (06) | DRG 329 ==
LOC: ED 06:18 → EDIP 08:20 → 4NE 09:17 → CCU 18:51 → 4WST 08-31 13:17
PROVIDERS: ADMIT Internal Medicine; ATTEND Family Medicine
PROC: 0WQF0ZZ Repair Abdominal Wall, Open Approach (ICD-10-PCS; 2019-08-29)
PROC: 0DBN0ZZ Excision of Sigmoid Colon, Open Approach (ICD-10-PCS; 2019-08-29)
PROC: 0BH17EZ Insertion of Endotracheal Airway into Trachea, Via Natural or Artificial Opening (ICD-10-PCS; 2019-08-29)
PROC: 0DSB0ZZ Reposition Ileum, Open Approach (ICD-10-PCS; 2019-08-29)
PROC: 5A1935Z Respiratory Ventilation, Less than 24 Consecutive Hours (ICD-10-PCS; 2019-08-29)
PROC: 5A09357 Assistance with Respiratory Ventilation, Less than 24 Consecutive Hours, Continuous Positive Airway Pressure (ICD-10-PCS; 2019-08-29)
PROC: 0D1N0Z4 Bypass Sigmoid Colon to Cutaneous, Open Approach (ICD-10-PCS; principal; 2019-08-29 11:30)
PROC: 5A09357 Assistance with Respiratory Ventilation, Less than 24 Consecutive Hours, Continuous Positive Airway Pressure (ICD-10-PCS; 2019-08-31)
PROC: 02HV33Z Insertion of Infusion Device into Superior Vena Cava, Percutaneous Approach (ICD-10-PCS; 2019-09-04)
PROC: B5181ZA Fluoroscopy of Superior Vena Cava using Low Osmolar Contrast, Guidance (ICD-10-PCS; 2019-09-04)
PROC: B54NZZA Ultrasonography of Left Upper Extremity Veins, Guidance (ICD-10-PCS; 2019-09-04)
PROC: 0W9F3ZX Drainage of Abdominal Wall, Percutaneous Approach, Diagnostic (ICD-10-PCS; 2019-09-07)
DX: K43.0 Incisional hernia with obstruction, without gangrene (principal); J95.821 Acute postprocedural respiratory failure; K55.9 Vascular disorder of intestine, unspecified; I13.0 Hypertensive heart and chronic kidney disease with heart failure and stage 1 through stage 4 chronic kidney disease, or unspecified chronic kidney disease; J98.11 Atelectasis; N17.9 Acute kidney failure, unspecified; N32.81 Overactive bladder; R13.10 Dysphagia, unspecified; K43.5 Parastomal hernia without obstruction or gangrene; D72.825 Bandemia; E11.22 Type 2 diabetes mellitus with diabetic chronic kidney disease; E11.65 Type 2 diabetes mellitus with hyperglycemia; E78.5 Hyperlipidemia, unspecified; F31.9 Bipolar disorder, unspecified; F41.9 Anxiety disorder, unspecified; G47.33 Obstructive sleep apnea (adult) (pediatric); I27.20 Pulmonary hypertension, unspecified; I50.9 Heart failure, unspecified; I70.0 Atherosclerosis of aorta; J44.9 Chronic obstructive pulmonary disease, unspecified; N18.9 Chronic kidney disease, unspecified; G89.29 Other chronic pain; Z72.0 Tobacco use; Z90.710 Acquired absence of both cervix and uterus; Z90.49 Acquired absence of other specified parts of digestive tract
CPT/HCPCS: 36415; 36573; 36600; 71045; 71250; 71260; 74022; 74177; 76942; 80048; 80053; 80069; 80076; 81001; 82803; 82962; 83036; 83605; 83735; 84100; 84145; 84439; 84443; 85025; 85610; 86140; 87040; 87070; 87075; 87077; 87081; 87186; 87205; 88305; 88307; 93005; 94003; 94660; 96374; 96375; 96376; G0378; J0690; J1100; J1170; J1815; J1940; J2175; J2250; J2270; J2405; J2543; J2704; J2710; J3010; J3480; J7042; Q9967; C1751; J0330; J3475; J3490; J7030; J7040

== ENCOUNTER → 2020-02-28 | Outpatient (CLI) | payer MEDICARE ==
[~2020-02-28] MED LIST changes: +LORA-445 PO; +LOSA25TA25 PO
== END | disposition home or self-care (01) ==
LOC: CFH 13:24
PROVIDERS: ATTEND Nurse Practitioner Primary Care
DX: Z12.2 Encounter for screening for malignant neoplasm of respiratory organs (principal); J43.9 Emphysema, unspecified; I25.10 Atherosclerotic heart disease of native coronary artery without angina pectoris; I70.0 Atherosclerosis of aorta; M47.814 Spondylosis without myelopathy or radiculopathy, thoracic region; F17.210 Nicotine dependence, cigarettes, uncomplicated; Z90.49 Acquired absence of other specified parts of digestive tract
CPT/HCPCS: G0297

== ENCOUNTER → 2020-07-11 | Outpatient (CLI) | payer MEDICARE ==
[~2020-07-11] MED LIST changes: -NICO-487 TD; +NICO-587 TD; +OMNIPAQUE 350 MG/ML, 100ML BOTTLE ONE
== END | disposition home or self-care (01) ==
LOC: CFH 11:49
PROVIDERS: ATTEND Internal Medicine
DX: K42.9 Umbilical hernia without obstruction or gangrene (principal); K43.5 Parastomal hernia without obstruction or gangrene; R19.00 Intra-abdominal and pelvic swelling, mass and lump, unspecified site; R93.5 Abnormal findings on diagnostic imaging of other abdominal regions, including retroperitoneum
CPT/HCPCS: 74177; 82565; Q9967

== ENCOUNTER 2020-09-29 18:31 | Inpatient (IN) | payer MEDICARE ==
[~2020-09-29] VITALS: Ht 170.2 cm; Wt 67.1 kg
[~2020-09-29 18:31] MED LIST changes: -OMNIPAQUE 350 MG/ML, 100ML BOTTLE ONE
--- NOTE | 2020-09-29 18:56 | NUR ---
SCHEDULE SUPERVISOR: CALLED FOR ROOM, NO ANSWER
--- NOTE | 2020-09-29 19:08 | NUR ---
No answer called at 190
[2020-09-29 19:17] LABS: BASOPHILS % (AUTO) 1 % (0-1); EOSINOPHILS % (AUTO) 1 % (1-7); LYMPHOCYTES % (AUTO) 20 % (22-44); MEAN CORPUSCULAR HEMOGLOBIN 30.4 pg (27.0-34.8); MEAN CORPUSCULAR HGB CONC 33.6 g/dL (32.4-35.8); MEAN PLATELET VOLUME 8.1 fL (7.4-10.4); MONOCYTES % (AUTO) 8 % (2-9); NEUTROPHILS % (AUTO) 70 % (42-75); PLATELET COUNT 282 x10^3/uL (130-400); RED BLOOD COUNT 5.79 x10^6/uL (3.82-5.3); RED CELL DISTRIBUTION WIDTH 14.4 % (9.6-15.2)
[2020-09-29 19:18] LABS: MD NO
[2020-09-29 19:20] LABS: ALBUMIN 2.6 g/dL (3.4-5.0); ANION GAP 7 mmol/L (5-15); CALCIUM 9.3 mg/dL (8.5-10.1); CHLORIDE 97 mmol/L (98-107)
[2020-09-29 19:26] LABS: ALANINE AMINOTRANSFERASE 27 U/L (12-78); ALKALINE PHOSPHATASE 103 U/L (45-117); BILIRUBIN,TOTAL 0.4 mg/dL (0.2-1.0); CREATININE 1.37 mg/dL (0.55-1.02); TOTAL PROTEIN 6.6 g/dL (6.4-8.2); TROPONIN I < 0.015 ng/mL (0.000-0.045)
--- NOTE | 2020-09-29 19:32 | NUR ---
3RD TIME NIL, WALKED AROUND LOBBY AND OUTSIDE, NA BY PT.
--- NOTE | 2020-09-29 19:39 | NUR ---
PT AMBULATED WITH HOME WALKER WITHOUT ASSISTANCE, PT STATES SHE CAME IN BECAUSE SHE WENT TO URGENT CARE AND THEY WERE WORRIED SHE MIGHT HAVE A BLOOD CLOT, PT STATES SOME SOB AT THIS TIME, BLOOD SUGAR WAS 667, PT GETTING DRESSED AT THIS TIME
[2020-09-29] MEDS ORDERED: NICOTINE 21 MG/24 HR PATCH.TD24 ONE (19:57)
[2020-09-29] MEDS ORDERED: INSULIN SINGLE DOSE, ER ONE (19:57)
[2020-09-29] MEDS ORDERED: NICOTINE 21 MG/24 HR PATCH.TD24 TD ONE (20:00)
[2020-09-29] MEDS ORDERED: INSULIN REGULAR 100 UNITS/ML, 3ML VIAL SQ-INSULIN ONE (20:00)
[2020-09-29] MEDS ORDERED: SODIUM CHLORIDE 0.9% 1,000ML IVBOLUS ONE (20:00)
[2020-09-29] MEDS ORDERED: MEMA5TAB PO (20:09)
[2020-09-29] MEDS ORDERED: GABA800T5 PO (20:09)
[2020-09-29] MEDS ORDERED: METF500T17 PO (20:09)
[2020-09-29 20:30] LABS: PH, VENOUS 7.313 pH (7.320-7.420)
[2020-09-29 21:13] LABS: ACETONE, SERUM Small (20mg/dL) (Negative)
--- NOTE | 2020-09-29 21:34 | NUR ---
PT STILL UNABLE TO PROVIDE URINE SAMPLE AT THIS TIME
--- NOTE | 2020-09-29 21:58 | NUR ---
PT INITIALLY REFUSING ADMISSION, SPOKE WITH TERRY AND IF PT WANTS TO LEAVE AMA, SHE CAN BUT NO ORDERS WILL BE PLACED. THIS RN SPOKE WITH PT ON NEED TO BE ADMITTED AND FIND OUT BETTER CARE FOR DIABETES, PT AGREEABLE AT THIS TIME TO BE ADMITTED
--- NOTE | 2020-09-29 22:05 | NUR ---
REPORT GIVEN TO SERGEI WELCH
[2020-09-29] MEDS ORDERED: GABAPENTIN 300 MG CAPSULE PO PRN (23:00)
[2020-09-29] MEDS ORDERED: LIDODERM 5% PATCH TD PRN (23:00)
[2020-09-29] MEDS ORDERED: DOCUSATE 100 MG CAPSULE PO PRN (23:00)
[2020-09-29] MEDS ORDERED: ACETAMINOPHEN 325 MG TABLET PO PRN (23:00)
[2020-09-29 23:04] VITALS: BP 120/80
[2020-09-30] MEDS: HEPARIN 5,000 UNITS/ML, 1ML SQ SCH ×4 (00:24→23:00)
[2020-09-30] MEDS: SODIUM CHLORIDE 0.9% 1,000 ML IV SCH ×2 (00:25→17:04)
[2020-09-30 00:29] LABS: ESTIMATED AVERAGE GLUCOSE 355 mg/dL (0-126)
[2020-09-30] MEDS: INSULIN REGULAR 100 UNITS/ML, 3ML VIAL SQ-INSULIN SCH ×5 (00:59→20:58)
[2020-09-30 01:06] LABS: HDL CHOLESTEROL (DIRECT) 42 mg/dL (40-60); TROPONIN I < 0.015 ng/mL (0.000-0.045)
[2020-09-30 01:11] LABS: CHOL/HDL RATIO 4.3; CHOLESTEROL, TOTAL 180 mg/dL (140-239); HDL CHOL % 23 % (28-40); LDL CHOLESTEROL,CALCULATED 97 mg/dL (54-169); LDL/HDL RATIO 2.3 (0.5-3.0); TRIGLYCERIDES 207 mg/dL (50-200); VLDL CHOLESTEROL 41 mg/dL (0-25)
[2020-09-30 03:49] VITALS: BP 111/71
[2020-09-30 05:32] LABS: ANION GAP 4 mmol/L (5-15); CALCIUM 8.7 mg/dL (8.5-10.1); CHLORIDE 109 mmol/L (98-107)
[2020-09-30 05:33] LABS: BASOPHILS % (AUTO) 1 % (0-1); EOSINOPHILS % (AUTO) 2 % (1-7); LYMPHOCYTES % (AUTO) 31 % (22-44); MEAN CORPUSCULAR HEMOGLOBIN 29.9 pg (27.0-34.8); MEAN CORPUSCULAR HGB CONC 33.3 g/dL (32.4-35.8); MONOCYTES % (AUTO) 8 % (2-9); NEUTROPHILS % (AUTO) 59 % (42-75); PLATELET COUNT 278 x10^3/uL (130-400); RED CELL DISTRIBUTION WIDTH 13.8 % (9.6-15.2)
[2020-09-30 05:39] LABS: CREATININE 0.83 mg/dL (0.55-1.02); TROPONIN I < 0.015 ng/mL (0.000-0.045)
[2020-09-30 06:48] LABS: MD SCAN
[2020-09-30 06:57] VITALS: BP 126/70
[2020-09-30] MEDS ORDERED: REGADENOSON 0.4 MG/5 ML SYRINGE ONE (08:43)
[2020-09-30] MEDS: LORazepam 0.5MG TABLET PO SCH (11:08)
[2020-09-30] MEDS: MEMANTINE 5MG TABLET PO SCH (11:08)
[2020-09-30] MEDS: GABAPENTIN 400 MG CAPSULE PO SCH ×4 (11:08→20:50)
[2020-09-30] MEDS: TRINTELLIX 10 MG HOMEMEDPO SCH (11:09)
[2020-09-30] MEDS ORDERED: NICOTINE 14MG/24 HR PATCH.TD24 TD SCH (12:30)
[2020-09-30 13:09] LABS: MICROSCOPIC AUTO
[2020-09-30 13:47] VITALS: BP 133/75
[2020-09-30] MEDS: NICOTINE 21 MG/24 HR PATCH.TD24 TD SCH (14:18)
[2020-09-30] MEDS: CEFTRIAXONE 1,000 MG in DEXTROSE 5% 50 ML IVPB SCH (15:23)
[2020-09-30 19:16] VITALS: BP 126/72
[2020-09-30] MEDS: MELATONIN 5 MG TABLET PO PRN ×2 (20:44→20:50)
[2020-10-01 01:30] VITALS: BP 131/78
[2020-10-01 06:46] VITALS: BP 129/67
[2020-10-01] MEDS: MEMANTINE 5MG TABLET PO SCH (08:58)
[2020-10-01] MEDS: LORazepam 0.5MG TABLET PO SCH (08:58)
[2020-10-01] MEDS: HEPARIN 5,000 UNITS/ML, 1ML SQ SCH ×2 (08:59→19:55)
[2020-10-01] MEDS ORDERED: INSULIN GLARGINE 100 UNITS/ML, PEN SQ-INSULIN SCH (09:00)
[2020-10-01] MEDS: INSULIN REGULAR 100 UNITS/ML, 3ML VIAL SQ-INSULIN SCH ×4 (09:00→20:41)
[2020-10-01] MEDS: TRINTELLIX 10 MG HOMEMEDPO SCH (09:02)
[2020-10-01] MEDS: SODIUM CHLORIDE 0.9% 1,000 ML IV SCH (09:02)
[2020-10-01] MEDS ORDERED: GABAPENTIN 400 MG CAPSULE PO SCH (09:30)
[2020-10-01] MEDS ORDERED: GABAPENTIN 400 MG CAPSULE PO ONE (11:38)
[2020-10-01 11:54] VITALS: BP 132/65
[2020-10-01] MEDS: CEFTRIAXONE 1,000 MG in DEXTROSE 5% 50 ML IVPB SCH (13:43)
[2020-10-01] MEDS: NICOTINE 21 MG/24 HR PATCH.TD24 TD SCH (13:44)
[2020-10-01] MEDS: GABAPENTIN 400 MG CAPSULE PO SCH ×2 (16:24→20:42)
[2020-10-01] MEDS: PIPERACILLIN/TAZO 4.5 GM in DEXTROSE 5% 100 ML IVPB SCH (18:48)
[2020-10-01 19:45] VITALS: BP 127/62
[2020-10-02] MEDS: PIPERACILLIN/TAZO 4.5 GM in DEXTROSE 5% 100 ML IVPB SCH ×4 (00:25→17:53)
[2020-10-02 02:00] VITALS: BP 134/68
[2020-10-02] MEDS: HEPARIN 5,000 UNITS/ML, 1ML SQ SCH ×3 (03:35→20:25)
[2020-10-02 07:33] VITALS: BP 125/68
[2020-10-02 07:48] LABS: BASOPHILS % (AUTO) 1 % (0-1); EOSINOPHILS % (AUTO) 2 % (1-7); LYMPHOCYTES % (AUTO) 14 % (22-44); MEAN CORPUSCULAR HEMOGLOBIN 30.1 pg (27.0-34.8); MEAN CORPUSCULAR HGB CONC 33.4 g/dL (32.4-35.8); MEAN PLATELET VOLUME 7.6 fL (7.4-10.4); MONOCYTES % (AUTO) 10 % (2-9); NEUTROPHILS % (AUTO) 73 % (42-75); PLATELET COUNT 264 x10^3/uL (130-400); RED BLOOD COUNT 5.28 x10^6/uL (3.82-5.3)
[2020-10-02 07:51] LABS: ALANINE AMINOTRANSFERASE 21 U/L (12-78); ALBUMIN 2.2 g/dL (3.4-5.0); ANION GAP 4 mmol/L (5-15); CHLORIDE 105 mmol/L (98-107); CREATININE 0.92 mg/dL (0.55-1.02)
[2020-10-02 07:52] LABS: MD NO
[2020-10-02 07:53] LABS: ALKALINE PHOSPHATASE 72 U/L (45-117); BILIRUBIN,TOTAL 0.5 mg/dL (0.2-1.0); TOTAL PROTEIN 5.7 g/dL (6.4-8.2)
[2020-10-02] MEDS: TRINTELLIX 10 MG HOMEMEDPO SCH (08:35)
[2020-10-02] MEDS: LORazepam 0.5MG TABLET PO SCH (08:35)
[2020-10-02] MEDS: INSULIN REGULAR 100 UNITS/ML, 3ML VIAL SQ-INSULIN SCH ×2 (08:35→11:29)
[2020-10-02] MEDS: GABAPENTIN 400 MG CAPSULE PO SCH ×3 (08:35→20:25)
[2020-10-02] MEDS: MEMANTINE 5MG TABLET PO SCH (08:35)
[2020-10-02 11:21] VITALS: BP 122/55
[2020-10-02] MEDS: ASPIRIN 81 MG TABLET EC PO SCH (11:30)
[2020-10-02] MEDS: NICOTINE 21 MG/24 HR PATCH.TD24 TD SCH (14:00)
[2020-10-02] MEDS ORDERED: OMNIPAQUE 350 MG/ML, 150 ML BOTTLE ONE (14:16)
[2020-10-02] MEDS: INSULIN LISPRO 100 UNITS/ML, PEN SQ-INSULIN SCH ×2 (17:53→20:25)
[2020-10-02 19:04] VITALS: BP 127/65
[2020-10-02] MEDS ORDERED: INSULIN LISPRO 100 UNITS/ML, PEN SQ-INSULIN SCH (21:00)
[2020-10-02] MEDS ORDERED: ATORVASTATIN 80 MG TABLET PO SCH (21:00)
[2020-10-03 00:17] VITALS: BP 133/62
[2020-10-03] MEDS: PIPERACILLIN/TAZO 4.5 GM in DEXTROSE 5% 100 ML IVPB SCH ×3 (00:30→12:42)
[2020-10-03] MEDS: HEPARIN 5,000 UNITS/ML, 1ML SQ SCH ×2 (04:19→11:27)
[2020-10-03] MEDS: ASPIRIN 81 MG TABLET EC PO SCH (05:55)
[2020-10-03 06:42] VITALS: BP 114/69
[2020-10-03] MEDS: GABAPENTIN 400 MG CAPSULE PO SCH ×2 (07:40→15:05)
[2020-10-03] MEDS: MEMANTINE 5MG TABLET PO SCH (07:40)
[2020-10-03] MEDS: LORazepam 0.5MG TABLET PO SCH (07:40)
[2020-10-03] MEDS: TRINTELLIX 10 MG HOMEMEDPO SCH (07:52)
[2020-10-03] MEDS: INSULIN LISPRO 100 UNITS/ML, PEN SQ-INSULIN SCH ×3 (07:52→17:12)
[2020-10-03 13:27] VITALS: BP 144/68
[2020-10-03] MEDS: NICOTINE 21 MG/24 HR PATCH.TD24 TD SCH (15:05)
[2020-10-03] MEDS ORDERED: ASPI81TA45 PO (15:58)
[2020-10-03] MEDS ORDERED: ATOR-2 PO (15:58)
[2020-10-03] MEDS ORDERED: FOSF3PAC PO (15:58)
[2020-10-03] MEDS ORDERED: FOSFOMYCIN 3 GM PACKET PO ONE (16:00)
[2020-10-03] MEDS ORDERED: CILO100T PO (16:01)
[2020-10-03] MEDS ORDERED: INSU200I SQ (16:52)
[2020-10-03] MEDS ORDERED: NPH,100I4 SQ-INSULIN (18:07)
== END 2020-10-03 18:23 | disposition home or self-care (01) | DRG 638 ==
LOC: ED 22:00 → EDIP 22:32 → 4WST 22:33
PROVIDERS: ADMIT Family Medicine; ATTEND Hospitalist
DX: E11.65 Type 2 diabetes mellitus with hyperglycemia (principal); E87.2 Acidosis; F31.30 Bipolar disorder, current episode depressed, mild or moderate severity, unspecified; N39.0 Urinary tract infection, site not specified; F17.203 Nicotine dependence unspecified, with withdrawal; E11.21 Type 2 diabetes mellitus with diabetic nephropathy; D63.8 Anemia in other chronic diseases classified elsewhere; N32.81 Overactive bladder; B96.5 Pseudomonas (aeruginosa) (mallei) (pseudomallei) as the cause of diseases classified elsewhere; E11.51 Type 2 diabetes mellitus with diabetic peripheral angiopathy without gangrene; E11.42 Type 2 diabetes mellitus with diabetic polyneuropathy; E78.5 Hyperlipidemia, unspecified; E86.0 Dehydration; F03.90 Unspecified dementia, unspecified severity, without behavioral disturbance, psychotic disturbance, mood disturbance, and anxiety; G47.33 Obstructive sleep apnea (adult) (pediatric); J44.9 Chronic obstructive pulmonary disease, unspecified; M25.571 Pain in right ankle and joints of right foot; M25.572 Pain in left ankle and joints of left foot; Z93.2 Ileostomy status; Z93.3 Colostomy status; Z90.49 Acquired absence of other specified parts of digestive tract; Z90.710 Acquired absence of both cervix and uterus; Z82.49 Family history of ischemic heart disease and other diseases of the circulatory system
CPT/HCPCS: 36415; 71045; 75635; 78452; 80048; 80053; 80061; 81001; 82010; 82803; 82962; 83036; 83605; 83735; 83880; 84484; 85025; 87040; 87077; 87086; 87186; 93005; 93017; 93306; 93922; 93925; 93970; G0378; J0696; J1644; J1815; J2543; J2785; Q9967; A9502; J7030

== ENCOUNTER 2021-01-21 19:14 | Emergency (ER) | payer MEDICARE ==
[~2021-01-21] VITALS: Ht 170.2 cm; Wt 66.1 kg
[~2021-01-21 19:14] MED LIST changes: +ASPI81TA45 PO; +ATOR-2 PO; +CILO100T PO; +FOSF3PAC PO; +INSU200I SQ; +MEMA5TAB PO; +NPH,100I4 SQ-INSULIN
[2021-01-21] MEDS ORDERED: SODIUM CHLORIDE FLUSH 10ML SYR IVF ONE ×3 (20:00→21:00)
[2021-01-21 20:34] LABS: BASOPHILS % (AUTO) 1 % (0-1); EOSINOPHILS % (AUTO) 0 % (1-7); LYMPHOCYTES % (AUTO) 14 % (22-44); MEAN CORPUSCULAR HEMOGLOBIN 29.4 pg (27.0-34.8); MEAN CORPUSCULAR HGB CONC 32.2 g/dL (32.4-35.8); MEAN PLATELET VOLUME 7.5 fL (7.4-10.4); MONOCYTES % (AUTO) 7 % (2-9); NEUTROPHILS % (AUTO) 77 % (42-75); PLATELET COUNT 370 x10^3/uL (130-400); RED BLOOD COUNT 5.04 x10^6/uL (3.82-5.3); RED CELL DISTRIBUTION WIDTH 13.8 % (9.6-15.2)
--- NOTE | 2021-01-21 20:40 | NUR ---
ER AT BEDSIDE
[2021-01-21 20:46] LABS: ALANINE AMINOTRANSFERASE 20 U/L (12-78); ALBUMIN 1.9 g/dL (3.4-5.0); ANION GAP 7 mmol/L (5-15); CALCIUM 8.5 mg/dL (8.5-10.1); CHLORIDE 90 mmol/L (98-107); CREATININE 1.21 mg/dL (0.55-1.02)
[2021-01-21 20:49] LABS: ALKALINE PHOSPHATASE 98 U/L (45-117); BILIRUBIN,TOTAL 0.2 mg/dL (0.2-1.0); TOTAL PROTEIN 6.5 g/dL (6.4-8.2)
[2021-01-21 20:59] VITALS: BP 111/66
[2021-01-21] MEDS ORDERED: ALBUTEROL/IPRATROPIUM 2.5MG/0.5MG, 3 ML NPPB ONE (21:00)
[2021-01-21] MEDS ORDERED: PIPERACILLIN/TAZO 3.375 GM in DEXTROSE 5% 50 ML IVPB ONE (21:00)
[2021-01-21] MEDS ORDERED: SODIUM CHLORIDE 0.9% 1,000 ML IV ONE (21:00)
[2021-01-21] MEDS ORDERED: DAPTOMYCIN 400 MG in SODIUM CHLORIDE 0.9% 100 ML IVPB ONE (21:00)
[2021-01-21] MEDS ORDERED: methylPREDNISolone SOD SUCC 125 MG/2 ML IV ONE (21:00)
[2021-01-21 21:18] LABS: INTERNATIONAL NORMALIZED RATIO 0.95 (0.93-1.1); PROTHROMBIN TIME 10.2 Seconds (9.6-11.5)
[2021-01-21] MEDS ORDERED: ALBUTEROL/IPRATROPIUM 2.5MG/0.5MG, 3 ML ONE (21:23)
[2021-01-21 21:28] LABS: HCT (SEDRATE) 46.1 % (34.6-47.8)
--- NOTE | 2021-01-21 21:35 | NUR ---
LATE ENTRY DUE TO PT CARE GAVE REPORT TO JOSE MAI. TRANSFER OF CARE
[2021-01-21] MEDS ORDERED: INSULIN SINGLE DOSE, ER ONE (21:42)
--- NOTE | 2021-01-21 21:45 | NUR ---
INTRODUCED SELF TO PT. PT STATING SHE WANTS TO LEAVE AGAINST MEDICAL ADVICE AND FOLLOW UP WITH SURGEON OUTPATIENT. DR. GARCES AT BEDSIDE SPEAKING WITH PT. ADVISED OF RISKS OF LEAVING AGAINST ADVICE. PT VERBALIZED UNDERSTNADING. PIV REMOVED AT THIS TIME.
--- NOTE | 2021-01-21 21:50 | NUR ---
PT REFUSED TO SIGN AMA FORM.
[2021-01-21] MEDS ORDERED: SODIUM CHLORIDE 0.9%, 500ML IVBOLUS ONE (22:00)
[2021-01-21] MEDS ORDERED: INSULIN REGULAR 100 UNITS/ML, 3ML VIAL SQ-INSULIN ONE (22:00)
--- NOTE | 2021-01-21 22:07 | NUR ---
PT LEFT THE ED AT THIS TIME, GIVEN DISCHARGE PAPERWORK. PT AMBULATED OUT OF THE ED W/ STEADY GAIT, PERSONAL CANE, ALL PERSONAL BELONGINGS. PT DID NOT LISTEN OR ENGAGE [facility] DISCHARGE TEACHING OR EDUCATION.
== END 2021-01-21 22:09 | disposition left against medical advice (07) ==
LOC: ED 21:24
DX: L03.116 Cellulitis of left lower limb (principal); E11.621 Type 2 diabetes mellitus with foot ulcer; E11.65 Type 2 diabetes mellitus with hyperglycemia; R94.31 Abnormal electrocardiogram [ECG] [EKG]; J44.9 Chronic obstructive pulmonary disease, unspecified; E78.5 Hyperlipidemia, unspecified; X58.XXXA Exposure to other specified factors, initial encounter; Y93.89 Activity, other specified; Y92.89 Other specified places as the place of occurrence of the external cause; Y99.8 Other external cause status
CPT/HCPCS: 36415; 71045; 73630; 80053; 83036; 83605; 85025; 85610; 85651; 86140; 87040; 87070; 87077; 87147; 87186; 87205; 93005; 99285; J1815

== ENCOUNTER 2021-01-23 13:50 | Inpatient (IN) | payer MEDICARE ==
[~2021-01-23] VITALS: Ht 162.6 cm; Wt 71.9 kg
--- NOTE | 2021-01-23 14:18 | NUR ---
SEE TRIAGE. PT STATES SOMETIMES USES OXYGEN VIA NC A HOME BUT CONSISENTLY ON RA WITH SATS IN UPPER 80S TO LOW 90S. RA SAT 87%, OXYGEN PLACED AT 2LITERS VIA NC. FS BY KENNEDY 450, PT ALSO STATES THAT'S "NORMAL" BLOOD SUGAR FOR HER. PT STATES HERE TODAY B/C "CAN'T STAND THE PAIN". PAIN TO INFERIOR AND LATERAL L GREAT TOE. WOUND WITH BANDAIDS COVERING-REMOVED. APPROX DOLLAR COIN SIZE WITH CRUSTING BLACK AND PURULENT TISSUE. CALL LIGHT WITHIN REACH.
[2021-01-23] MEDS ORDERED: VANCOMYCIN PER PHARMACY MC ONE (14:30)
[2021-01-23] MEDS ORDERED: PIPERACILLIN/TAZO 4.5 GM in DEXTROSE 5% 100 ML IVPB ONE (14:30)
[2021-01-23] MEDS ORDERED: SODIUM CHLORIDE 0.9% 1,000ML IVBOLUS ONE (14:30)
[2021-01-23] MEDS ORDERED: SODIUM CHLORIDE FLUSH 10ML SYR IVF ONE (14:30)
[2021-01-23] MEDS ORDERED: SODIUM CHLORIDE 0.9% 1,000 ML IV ONE ×2 (14:30→15:00)
[2021-01-23] MEDS ORDERED: VANCOMYCIN 1,400 MG in SODIUM CHLORIDE 0.9% 250 ML IV ONE ×2 (14:30→19:30)
[2021-01-23] MEDS ORDERED: DOCUSATE 100 MG CAPSULE PO PRN (15:00)
[2021-01-23] MEDS ORDERED: HYDROcodone/APAP 5/325 TABLET PO PRN (15:00)
[2021-01-23] MEDS ORDERED: GLUCAGON 1 MG IM PRN (15:00)
[2021-01-23] MEDS ORDERED: hydrALAzine 20 MG/ML, 1ML IVPush PRN (15:00)
[2021-01-23] MEDS ORDERED: LABETALOL 5MG/ML, 20ML IVPush PRN (15:00)
[2021-01-23] MEDS ORDERED: TRAZODONE 50MG TABLET PO PRN (15:00)
[2021-01-23] MEDS ORDERED: ENALAPRILAT 1.25 MG/ML, 2ML IVPush PRN (15:00)
[2021-01-23] MEDS ORDERED: METOCLOPRAMIDE 5 MG/ML, 2ML IVPush PRN (15:00)
[2021-01-23] MEDS ORDERED: POLYETHYLENE GLYCOL 17 GM PACKET PO PRN (15:00)
[2021-01-23] MEDS ORDERED: SODIUM CHLORIDE FLUSH 10ML SYR IVF PRN (15:00)
[2021-01-23] MEDS ORDERED: BISACODYL 10 MG SUPP PR PRN (15:00)
[2021-01-23] MEDS ORDERED: DEXTROSE 4 GM TAB.CHEW PO PRN (15:00)
[2021-01-23] MEDS ORDERED: DEXTROSE 50%, 50ML SYRINGE IVPush PRN (15:00)
[2021-01-23] MEDS ORDERED: ONDANSETRON 2MG/ML, 2ML IVPush PRN (15:00)
[2021-01-23] MEDS ORDERED: ONDANSETRON ODT 4 MG PO PRN (15:00)
[2021-01-23 15:11] LABS: ALANINE AMINOTRANSFERASE 19 U/L (12-78); ALBUMIN 1.8 g/dL (3.4-5.0); ANION GAP 5 mmol/L (5-15); CALCIUM 8.5 mg/dL (8.5-10.1); CHLORIDE 96 mmol/L (98-107); CREATININE 0.94 mg/dL (0.55-1.02)
[2021-01-23 15:14] LABS: ALKALINE PHOSPHATASE 89 U/L (45-117); BASOPHILS % (AUTO) 1 % (0-1); BILIRUBIN,TOTAL 0.3 mg/dL (0.2-1.0); EOSINOPHILS % (AUTO) 1 % (1-7); LYMPHOCYTES % (AUTO) 13 % (22-44); MEAN CORPUSCULAR HEMOGLOBIN 29.8 pg (27.0-34.8); MEAN CORPUSCULAR HGB CONC 33.5 g/dL (32.4-35.8); MEAN PLATELET VOLUME 7.5 fL (7.4-10.4); MONOCYTES % (AUTO) 8 % (2-9); NEUTROPHILS % (AUTO) 77 % (42-75); PLATELET COUNT 407 x10^3/uL (130-400); RED CELL DISTRIBUTION WIDTH 13.6 % (9.6-15.2); TOTAL PROTEIN 6.3 g/dL (6.4-8.2)
[2021-01-23 15:20] LABS: HCT (SEDRATE) 43.9 % (34.6-47.8)
--- NOTE | 2021-01-23 15:22 | NUR ---
REPORT FROM GAVIN MAI
[2021-01-23 15:23] LABS: ACETONE, SERUM Negative (Negative)
--- NOTE | 2021-01-23 15:27 | NUR ---
REPORT TO JACKIE MAI, TRANSFER OF CARE AT THIS TIME.
[2021-01-23] MEDS ORDERED: VANCOMYCIN PER PHARMACY MC PRN (15:30)
--- NOTE | 2021-01-23 15:42 | NUR ---
ATTEMPT #1 FOR REPORT, FLOOR RN NOT FOUND. WILL LEAVE MESSAGE TO CALL
[2021-01-23] MEDS ORDERED: INSULIN LISPRO 5 UNIT SQ SCH (16:00)
[2021-01-23] MEDS ORDERED: TEMPLATE NON-FORMULARY MED. (Gabapentin** 800 MG) PO SCH (16:00)
[2021-01-23] MEDS: INSULIN LISPRO 100 UNITS/ML, PEN SQ-INSULIN SCH ×3 (16:00→21:00)
--- NOTE | 2021-01-23 16:37 | NUR ---
REPORT GIVEN TO JACEK MAI
--- NOTE | 2021-01-23 17:48 | NUR ---
back from mri
[2021-01-23 18:37] VITALS: BP 118/74
[2021-01-23] MEDS ORDERED: PHARMACOKINETIC MONITORING MC PRN (19:30)
[2021-01-23] MEDS ORDERED: PHARMACOKINETIC CONSULTATION MC ONE (19:30)
[2021-01-23] MEDS ORDERED: INSULIN GLARGINE 100 UNITS/ML, PEN SQ-INSULIN SCH (21:00)
[2021-01-23] MEDS: ATORVASTATIN 80 MG TABLET PO SCH (21:00)
[2021-01-23] MEDS: FAMOTIDINE 20 MG TABLET PO SCH ×2 (21:00→21:10)
[2021-01-23] MEDS ORDERED: metFORMIN 500 MG TABLET PO SCH (21:00)
[2021-01-23] MEDS: ENOXAPARIN 40 MG/0.4 ML SQ SCH (21:00)
[2021-01-23] MEDS: GABAPENTIN 400 MG CAPSULE PO SCH (21:10)
[2021-01-23] MEDS: SODIUM CHLORIDE FLUSH 10ML SYR IVF SCH (21:10)
[2021-01-23] MEDS: CILOSTAZOL 100 MG TABLET PO SCH (21:41)
[2021-01-23] MEDS: PIPERACILLIN/TAZO 3.375 GM in DEXTROSE 5% 50 ML IV SCH (23:19)
[2021-01-24 00:37] VITALS: BP 114/65
[2021-01-24 00:54] VITALS: BP 118/92
[2021-01-24] MEDS ORDERED: NICOTINE 21 MG/24 HR PATCH.TD24 ONE (04:13)
[2021-01-24] MEDS: NICOTINE 21 MG/24 HR PATCH.TD24 TD SCH ×2 (04:17→21:46)
[2021-01-24] MEDS: ASPIRIN 81 MG TABLET EC PO SCH (04:35)
[2021-01-24] MEDS: morphine SULFATE 10 MG/ML, 1ML IVPush PRN (04:47)
[2021-01-24] MEDS: PIPERACILLIN/TAZO 3.375 GM in DEXTROSE 5% 50 ML IV SCH ×4 (04:48→23:59)
[2021-01-24 05:28] LABS: BASOPHILS % (AUTO) 1 % (0-1); EOSINOPHILS % (AUTO) 1 % (1-7); LYMPHOCYTES % (AUTO) 13 % (22-44); MEAN CORPUSCULAR HEMOGLOBIN 29.4 pg (27.0-34.8); MEAN PLATELET VOLUME 7.6 fL (7.4-10.4); MONOCYTES % (AUTO) 8 % (2-9); NEUTROPHILS % (AUTO) 77 % (42-75); PLATELET COUNT 416 x10^3/uL (130-400); RED BLOOD COUNT 4.83 x10^6/uL (3.82-5.3); RED CELL DISTRIBUTION WIDTH 13.7 % (9.6-15.2)
[2021-01-24 05:46] LABS: ALANINE AMINOTRANSFERASE 17 U/L (12-78); ALBUMIN 1.8 g/dL (3.4-5.0); ANION GAP 6 mmol/L (5-15); CALCIUM 8.8 mg/dL (8.5-10.1); CHLORIDE 100 mmol/L (98-107)
[2021-01-24 05:49] LABS: ALKALINE PHOSPHATASE 85 U/L (45-117); BILIRUBIN,TOTAL 0.5 mg/dL (0.2-1.0); CREATININE 0.88 mg/dL (0.55-1.02); TOTAL PROTEIN 5.9 g/dL (6.4-8.2)
[2021-01-24] MEDS: INSULIN LISPRO 100 UNITS/ML, PEN SQ-INSULIN SCH ×8 (07:00→21:51)
[2021-01-24 07:54] VITALS: BP 150/58
[2021-01-24] MEDS: FAMOTIDINE 20 MG TABLET PO SCH ×2 (09:00→21:45)
[2021-01-24] MEDS ORDERED: NICOTINE 21 MG/24 HR PATCH.TD24 TD SCH (09:00)
[2021-01-24] MEDS: SODIUM CHLORIDE FLUSH 10ML SYR IVF SCH ×2 (09:25→21:46)
[2021-01-24] MEDS: GABAPENTIN 400 MG CAPSULE PO SCH ×3 (09:40→21:44)
[2021-01-24] MEDS: CILOSTAZOL 100 MG TABLET PO SCH ×2 (09:40→21:45)
[2021-01-24] MEDS: MEMANTINE 5MG TABLET PO SCH (09:41)
[2021-01-24] MEDS: INSULIN GLARGINE 100 UNITS/ML, PEN SQ-INSULIN SCH ×2 (10:12→21:52)
[2021-01-24] MEDS: VANCOMYCIN 1,000 MG in SODIUM CHLORIDE 0.9% 100 ML IV SCH (15:34)
[2021-01-24 15:38] LABS: MICROSCOPIC AUTO
[2021-01-24] MEDS: ENOXAPARIN 40 MG/0.4 ML SQ SCH (21:00)
[2021-01-24] MEDS: ATORVASTATIN 80 MG TABLET PO SCH (21:00)
[2021-01-24] MEDS: IBUPROFEN 600 MG TABLET PO PRN (21:50)
[2021-01-25 00:41] VITALS: BP 129/66
[2021-01-25] MEDS: ASPIRIN 81 MG TABLET EC PO SCH (05:53)
[2021-01-25] MEDS: PIPERACILLIN/TAZO 3.375 GM in DEXTROSE 5% 50 ML IV SCH ×3 (05:53→18:38)
[2021-01-25] MEDS: IBUPROFEN 600 MG TABLET PO PRN ×2 (05:55→17:20)
[2021-01-25] MEDS: INSULIN LISPRO 100 UNITS/ML, PEN SQ-INSULIN SCH ×5 (07:00→20:47)
[2021-01-25 07:54] VITALS: BP 129/69
[2021-01-25] MEDS: INSULIN GLARGINE 100 UNITS/ML, PEN SQ-INSULIN SCH ×2 (10:15→20:48)
[2021-01-25] MEDS: SODIUM CHLORIDE FLUSH 10ML SYR IVF SCH ×2 (10:16→20:49)
[2021-01-25] MEDS: MEMANTINE 5MG TABLET PO SCH (10:17)
[2021-01-25] MEDS: CILOSTAZOL 100 MG TABLET PO SCH ×2 (10:17→20:52)
[2021-01-25] MEDS: GABAPENTIN 400 MG CAPSULE PO SCH ×3 (10:17→20:52)
[2021-01-25] MEDS: FAMOTIDINE 20 MG TABLET PO SCH ×2 (10:17→20:52)
[2021-01-25] MEDS: VANCOMYCIN 1,000 MG in SODIUM CHLORIDE 0.9% 100 ML IV SCH (10:19)
[2021-01-25 15:02] VITALS: BP 117/65
[2021-01-25 20:07] VITALS: BP 143/69
[2021-01-25] MEDS: NICOTINE 21 MG/24 HR PATCH.TD24 TD SCH (20:50)
[2021-01-25] MEDS: ENOXAPARIN 40 MG/0.4 ML SQ SCH (20:50)
[2021-01-25] MEDS: ATORVASTATIN 80 MG TABLET PO SCH (20:51)
[2021-01-26 00:05] VITALS: BP 126/54
[2021-01-26] MEDS: PIPERACILLIN/TAZO 3.375 GM in DEXTROSE 5% 50 ML IV SCH ×4 (00:45→17:57)
[2021-01-26] MEDS: VANCOMYCIN 1,000 MG in SODIUM CHLORIDE 0.9% 100 ML IV SCH ×2 (03:03→21:46)
[2021-01-26] MEDS: ASPIRIN 81 MG TABLET EC PO SCH (05:26)
[2021-01-26] MEDS: IBUPROFEN 600 MG TABLET PO PRN ×2 (05:42→17:56)
[2021-01-26] MEDS: INSULIN LISPRO 100 UNITS/ML, PEN SQ-INSULIN SCH ×4 (07:00→21:47)
[2021-01-26] MEDS: SODIUM CHLORIDE FLUSH 10ML SYR IVF SCH ×2 (09:00→21:45)
[2021-01-26] MEDS: INSULIN GLARGINE 100 UNITS/ML, PEN SQ-INSULIN SCH ×2 (09:06→21:48)
[2021-01-26] MEDS: GABAPENTIN 400 MG CAPSULE PO SCH ×3 (09:07→21:44)
[2021-01-26] MEDS: MEMANTINE 5MG TABLET PO SCH (09:08)
[2021-01-26] MEDS: CILOSTAZOL 100 MG TABLET PO SCH ×2 (09:08→21:44)
[2021-01-26 09:39] VITALS: BP 129/57
[2021-01-26 16:59] VITALS: BP 147/68
[2021-01-26] MEDS: ATORVASTATIN 80 MG TABLET PO SCH (21:00)
[2021-01-26 21:39] VITALS: BP 143/62
[2021-01-26] MEDS: FAMOTIDINE 20 MG TABLET PO SCH (21:44)
[2021-01-26] MEDS: ENOXAPARIN 40 MG/0.4 ML SQ SCH (21:45)
[2021-01-26] MEDS: NICOTINE 21 MG/24 HR PATCH.TD24 TD SCH (21:46)
[2021-01-27] MEDS: PIPERACILLIN/TAZO 3.375 GM in DEXTROSE 5% 50 ML IV SCH ×4 (00:13→18:24)
[2021-01-27 00:35] VITALS: BP 136/74
[2021-01-27] MEDS: IBUPROFEN 600 MG TABLET PO PRN ×2 (01:37→20:16)
[2021-01-27 02:27] LABS: TROPONIN I < 0.015 ng/mL (0.000-0.045)
[2021-01-27] MEDS: ACETAMINOPHEN 325 MG TABLET PO PRN (04:21)
[2021-01-27] MEDS: ASPIRIN 81 MG TABLET EC PO SCH (05:54)
[2021-01-27] MEDS: INSULIN LISPRO 100 UNITS/ML, PEN SQ-INSULIN SCH ×4 (07:00→20:02)
[2021-01-27 07:09] VITALS: BP 138/75
[2021-01-27] MEDS: VANCOMYCIN 1,000 MG in SODIUM CHLORIDE 0.9% 100 ML IV SCH ×2 (09:12→21:19)
[2021-01-27] MEDS: CILOSTAZOL 100 MG TABLET PO SCH ×2 (09:12→19:49)
[2021-01-27] MEDS: SODIUM CHLORIDE FLUSH 10ML SYR IVF SCH ×2 (09:12→19:50)
[2021-01-27] MEDS: MEMANTINE 5MG TABLET PO SCH (09:12)
[2021-01-27] MEDS: GABAPENTIN 400 MG CAPSULE PO SCH ×3 (09:13→19:49)
[2021-01-27] MEDS: INSULIN GLARGINE 100 UNITS/ML, PEN SQ-INSULIN SCH ×2 (09:13→20:02)
[2021-01-27 13:39] VITALS: BP 101/58
[2021-01-27 19:42] VITALS: BP 157/67
[2021-01-27] MEDS: ATORVASTATIN 80 MG TABLET PO SCH (19:49)
[2021-01-27] MEDS: FAMOTIDINE 20 MG TABLET PO SCH (19:49)
[2021-01-27] MEDS: ENOXAPARIN 40 MG/0.4 ML SQ SCH (19:52)
[2021-01-28] MEDS: PIPERACILLIN/TAZO 3.375 GM in DEXTROSE 5% 50 ML IV SCH ×4 (00:08→18:19)
[2021-01-28 01:16] VITALS: BP 154/67
[2021-01-28] MEDS: ASPIRIN 81 MG TABLET EC PO SCH (06:05)
[2021-01-28] MEDS: INSULIN LISPRO 100 UNITS/ML, PEN SQ-INSULIN SCH ×4 (08:02→21:41)
[2021-01-28 08:49] VITALS: BP 150/63
[2021-01-28] MEDS: SODIUM CHLORIDE FLUSH 10ML SYR IVF SCH ×2 (09:53→19:52)
[2021-01-28] MEDS: IBUPROFEN 600 MG TABLET PO PRN (09:54)
[2021-01-28] MEDS: GABAPENTIN 400 MG CAPSULE PO SCH ×3 (09:54→21:41)
[2021-01-28] MEDS: CILOSTAZOL 100 MG TABLET PO SCH ×2 (09:55→19:53)
[2021-01-28] MEDS: MEMANTINE 5MG TABLET PO SCH (09:55)
[2021-01-28] MEDS: NICOTINE 21 MG/24 HR PATCH.TD24 TD SCH (09:56)
[2021-01-28] MEDS: INSULIN GLARGINE 100 UNITS/ML, PEN SQ-INSULIN SCH ×2 (09:56→21:41)
[2021-01-28] MEDS: VANCOMYCIN 1,500 MG in SODIUM CHLORIDE 0.9% 250 ML IV SCH ×2 (11:10→23:25)
[2021-01-28 12:55] VITALS: BP 126/63
[2021-01-28 19:32] VITALS: BP 128/58
[2021-01-28] MEDS: FAMOTIDINE 20 MG TABLET PO SCH (19:53)
[2021-01-28] MEDS: ATORVASTATIN 80 MG TABLET PO SCH (21:00)
[2021-01-28] MEDS: ENOXAPARIN 40 MG/0.4 ML SQ SCH (21:00)
[2021-01-28] MEDS ORDERED: LORATADINE 10 MG TABLET PO PRN (22:30)
[2021-01-29] MEDS: PIPERACILLIN/TAZO 3.375 GM in DEXTROSE 5% 50 ML IV SCH ×4 (00:52→17:53)
[2021-01-29 01:05] VITALS: BP 94/58
[2021-01-29 01:30] VITALS: BP 129/77
[2021-01-29] MEDS: ACETAMINOPHEN 325 MG TABLET PO PRN (04:08)
[2021-01-29] MEDS: ASPIRIN 81 MG TABLET EC PO SCH (06:00)
[2021-01-29 08:00] VITALS: BP 124/66
[2021-01-29] MEDS: INSULIN GLARGINE 100 UNITS/ML, PEN SQ-INSULIN SCH ×3 (08:35→21:06)
[2021-01-29] MEDS ORDERED: FENTANYL PF 250 MCG/5ML ONE (08:50)
[2021-01-29] MEDS: SODIUM CHLORIDE FLUSH 10ML SYR IVF SCH ×2 (08:59→21:00)
[2021-01-29] MEDS: NICOTINE 21 MG/24 HR PATCH.TD24 TD SCH (08:59)
[2021-01-29] MEDS: MEMANTINE 5MG TABLET PO SCH ×2 (08:59→15:24)
[2021-01-29] MEDS: GABAPENTIN 400 MG CAPSULE PO SCH ×3 (08:59→21:05)
[2021-01-29] MEDS: CILOSTAZOL 100 MG TABLET PO SCH ×2 (08:59→21:05)
[2021-01-29] MEDS: INSULIN LISPRO 100 UNITS/ML, PEN SQ-INSULIN SCH ×4 (08:59→21:06)
[2021-01-29] MEDS ORDERED: PROTAMINE SULFATE 10 MG/ML, 25ML ONE (09:01)
[2021-01-29] MEDS ORDERED: HEPARIN 1,000 UNITS/ML, 10ML ONE (09:01)
[2021-01-29] MEDS ORDERED: LIDOCAINE 1%, 10ML ONE (09:04)
[2021-01-29] MEDS ORDERED: MEPERIDINE/PF 25MG/0.5ML IVPush PRN (09:30)
[2021-01-29] MEDS ORDERED: ALBUTEROL SULFATE 2.5 MG/3 ML NPPB PRN (09:30)
[2021-01-29] MEDS ORDERED: PROMETHAZINE 25 MG/ML, 1ML IVPush PRN (09:30)
[2021-01-29] MEDS ORDERED: OXYcodone 5 MG/5 ML ORAL.SOL UDC PO PRN (09:30)
[2021-01-29] MEDS ORDERED: FENTANYL PF 100 MCG/2ML IV PRN (09:30)
[2021-01-29] MEDS ORDERED: ACETAMINOPHEN 325 MG TABLET PO PRN (09:30)
[2021-01-29] MEDS ORDERED: MIDAZOLAM 1 MG/ML, 2ML IV PRN (09:30)
[2021-01-29] MEDS ORDERED: HYDROmorphone 1 MG/ML, 1ML INJ IVPush PRN (09:30)
[2021-01-29] MEDS ORDERED: LABETALOL 5MG/ML, 20ML IV PRN (09:30)
[2021-01-29] MEDS ORDERED: ROCURONIUM 10MG/ML,5ML ONE (09:49)
[2021-01-29] MEDS ORDERED: ONDANSETRON 2MG/ML, 2ML ONE ×2 (09:49)
[2021-01-29] MEDS ORDERED: GLYCOPYRROLATE 0.2MG/1ML, 5ML ONE (09:49)
[2021-01-29] MEDS ORDERED: NEOSTIGMINE 1 MG/ML, 10ML ONE (09:49)
[2021-01-29] MEDS ORDERED: PROPOFOL 10 MG/ML, 20ML ONE (09:49)
[2021-01-29] MEDS ORDERED: LIDOCAINE-MPF 2% ,5ML ONE (09:49)
[2021-01-29] MEDS ORDERED: VISIPAQUE 270 MG/ML, 150ML BOTTLE ONE (10:14)
[2021-01-29] MEDS: VANCOMYCIN 1,500 MG in SODIUM CHLORIDE 0.9% 250 ML IV SCH ×2 (11:17→23:13)
[2021-01-29 12:47] VITALS: BP 154/69
[2021-01-29 18:38] VITALS: BP 133/62
[2021-01-29] MEDS ORDERED: INSULIN LISPRO 100 UNIT/ML, 3ML VIAL SQ-INSULIN ONE (21:00)
[2021-01-29] MEDS: ATORVASTATIN 80 MG TABLET PO SCH (21:05)
[2021-01-29] MEDS: FAMOTIDINE 20 MG TABLET PO SCH (21:05)
[2021-01-29] MEDS: ENOXAPARIN 40 MG/0.4 ML SQ SCH (21:10)
[2021-01-29] MEDS ORDERED: INSULIN LISPRO 100 UNITS/ML, PEN SQ-INSULIN ONE (21:30)
[2021-01-30 00:13] VITALS: BP 133/67
[2021-01-30] MEDS: PIPERACILLIN/TAZO 3.375 GM in DEXTROSE 5% 50 ML IV SCH ×4 (05:34→17:19)
[2021-01-30] MEDS: ASPIRIN 81 MG TABLET EC PO SCH (05:34)
[2021-01-30] MEDS ORDERED: BUPIVACAINE/PF 0.5% ONE (06:08)
[2021-01-30] MEDS ORDERED: LIDOCAINE 1%, 20ML ONE (06:08)
[2021-01-30] MEDS ORDERED: CHLORHEXIDINE 15 ML UDC PO ONE (06:30)
[2021-01-30] MEDS ORDERED: FENTANYL PF 250 MCG/5ML ONE (06:44)
[2021-01-30] MEDS ORDERED: LIDOCAINE-MPF 2% ,5ML ONE (06:45)
[2021-01-30] MEDS ORDERED: OXYcodone 5 MG/5 ML ORAL.SOL UDC PO PRN (07:00)
[2021-01-30] MEDS ORDERED: LABETALOL 5MG/ML, 20ML IV PRN (07:00)
[2021-01-30] MEDS ORDERED: PROMETHAZINE 25 MG/ML, 1ML IVPush PRN (07:00)
[2021-01-30] MEDS ORDERED: FENTANYL PF 100 MCG/2ML IV PRN (07:00)
[2021-01-30] MEDS ORDERED: EPHEDRINE 50 MG/ML, 1ML IVPush PRN (07:00)
[2021-01-30] MEDS ORDERED: HYDROmorphone 1 MG/ML, 1ML INJ IVPush PRN (07:00)
[2021-01-30] MEDS ORDERED: ACETAMINOPHEN 325 MG TABLET PO PRN (07:00)
[2021-01-30] MEDS ORDERED: hydrALAzine 20 MG/ML, 1ML IV PRN (07:00)
[2021-01-30] MEDS: INSULIN LISPRO 100 UNITS/ML, PEN SQ-INSULIN SCH ×4 (07:00→21:22)
[2021-01-30] MEDS ORDERED: ONDANSETRON 2MG/ML, 2ML IVPush PRN (07:00)
[2021-01-30] MEDS ORDERED: EPHEDRINE 50 MG/ML, 1ML ONE (07:09)
[2021-01-30] MEDS ORDERED: PROPOFOL 10 MG/ML, 20ML ONE (07:13)
[2021-01-30] MEDS ORDERED: ONDANSETRON 2MG/ML, 2ML ONE ×2 (07:13)
[2021-01-30] MEDS: GABAPENTIN 400 MG CAPSULE PO SCH ×3 (08:59→21:08)
[2021-01-30] MEDS: MEMANTINE 5MG TABLET PO SCH (08:59)
[2021-01-30] MEDS: CILOSTAZOL 100 MG TABLET PO SCH ×2 (08:59→21:09)
[2021-01-30] MEDS: NICOTINE 21 MG/24 HR PATCH.TD24 TD SCH (09:00)
[2021-01-30] MEDS: SODIUM CHLORIDE FLUSH 10ML SYR IVF SCH ×2 (09:00→21:08)
[2021-01-30] MEDS: INSULIN GLARGINE 100 UNITS/ML, PEN SQ-INSULIN SCH ×2 (09:03→22:29)
[2021-01-30] MEDS: IBUPROFEN 600 MG TABLET PO PRN ×3 (09:15→22:35)
[2021-01-30 09:21] LABS: CREATININE 0.97 mg/dL (0.55-1.02)
[2021-01-30] MEDS: VANCOMYCIN 1,500 MG in SODIUM CHLORIDE 0.9% 250 ML IV SCH (11:00)
[2021-01-30 12:01] VITALS: BP 139/61
[2021-01-30] MEDS: morphine SULFATE 10 MG/ML, 1ML IVPush PRN ×2 (15:16→19:40)
[2021-01-30 19:42] VITALS: BP 112/50
[2021-01-30] MEDS: ATORVASTATIN 80 MG TABLET PO SCH (21:00)
[2021-01-30] MEDS: FAMOTIDINE 20 MG TABLET PO SCH (21:08)
[2021-01-31] VITALS (9 sets, daily range): BP systolic 138–164; BP diastolic 61–75
[2021-01-31] MEDS: PIPERACILLIN/TAZO 3.375 GM in DEXTROSE 5% 50 ML IV SCH ×3 (00:26→11:26)
--- NOTE | 2021-01-31 05:22 | NUR ---
LORD SIMS,EMMETT SCOTT - Fall Risk Medication(s) present and receiving anticoagulants. Signed: 01/31/21 at 0522 by JACLYN HURT
[2021-01-31] MEDS: ASPIRIN 81 MG TABLET EC PO SCH (06:12)
[2021-01-31] MEDS: INSULIN LISPRO 100 UNITS/ML, PEN SQ-INSULIN SCH ×4 (07:58→21:12)
[2021-01-31] MEDS: CILOSTAZOL 100 MG TABLET PO SCH ×2 (07:59→21:14)
[2021-01-31] MEDS: GABAPENTIN 400 MG CAPSULE PO SCH ×3 (07:59→21:14)
[2021-01-31] MEDS: MEMANTINE 5MG TABLET PO SCH (07:59)
[2021-01-31] MEDS: INSULIN GLARGINE 100 UNITS/ML, PEN SQ-INSULIN SCH ×2 (07:59→21:11)
[2021-01-31] MEDS: SODIUM CHLORIDE FLUSH 10ML SYR IVF SCH ×2 (08:00→21:15)
[2021-01-31] MEDS: NICOTINE 21 MG/24 HR PATCH.TD24 TD SCH (08:02)
[2021-01-31 08:06] LABS: ALBUMIN 1.7 g/dL (3.4-5.0); CALCIUM 8.8 mg/dL (8.5-10.1)
[2021-01-31 08:07] LABS: BASOPHILS % (AUTO) 1 % (0-1); EOSINOPHILS % (AUTO) 3 % (1-7); LYMPHOCYTES % (AUTO) 21 % (22-44); MEAN CORPUSCULAR HEMOGLOBIN 29.2 pg (27.0-34.8); MEAN CORPUSCULAR HGB CONC 32.6 g/dL (32.4-35.8); MEAN PLATELET VOLUME 7.6 fL (7.4-10.4); MONOCYTES % (AUTO) 13 % (2-9); NEUTROPHILS % (AUTO) 62 % (42-75); PLATELET COUNT 329 x10^3/uL (130-400); RED BLOOD COUNT 4.53 x10^6/uL (3.82-5.3); RED CELL DISTRIBUTION WIDTH 13.7 % (9.6-15.2)
[2021-01-31 08:15] LABS: ALANINE AMINOTRANSFERASE 32 U/L (12-78); ALKALINE PHOSPHATASE 77 U/L (45-117); ANION GAP 6 mmol/L (5-15); BILIRUBIN,TOTAL 0.3 mg/dL (0.2-1.0); CHLORIDE 103 mmol/L (98-107); CREATININE 0.93 mg/dL (0.55-1.02); TOTAL PROTEIN 6.2 g/dL (6.4-8.2)
[2021-01-31] MEDS ORDERED: VANCOMYCIN 1,500 MG in SODIUM CHLORIDE 0.9% 250 ML IV ONE (10:00)
[2021-01-31] MEDS: IBUPROFEN 600 MG TABLET PO PRN (11:48)
[2021-01-31] MEDS: AMPICILLIN/SULBACTAM 3 GM in SODIUM CHLORIDE 0.9% 100 ML IV SCH ×2 (13:21→19:24)
[2021-01-31] MEDS: ATORVASTATIN 80 MG TABLET PO SCH (21:00)
[2021-01-31] MEDS: FAMOTIDINE 20 MG TABLET PO SCH (21:15)
[2021-02-01] MEDS: IBUPROFEN 600 MG TABLET PO PRN ×3 (00:33→14:42)
[2021-02-01] MEDS: AMPICILLIN/SULBACTAM 3 GM in SODIUM CHLORIDE 0.9% 100 ML IV SCH ×4 (01:18→19:21)
[2021-02-01 01:29] VITALS: BP 127/67
[2021-02-01] MEDS: ASPIRIN 81 MG TABLET EC PO SCH (05:52)
[2021-02-01] MEDS: INSULIN LISPRO 100 UNITS/ML, PEN SQ-INSULIN SCH ×4 (07:14→20:19)
[2021-02-01] MEDS: INSULIN GLARGINE 100 UNITS/ML, PEN SQ-INSULIN SCH ×2 (07:15→20:19)
[2021-02-01 07:36] VITALS: BP 143/86
[2021-02-01] MEDS: NICOTINE 21 MG/24 HR PATCH.TD24 TD SCH (07:40)
[2021-02-01] MEDS: SODIUM CHLORIDE FLUSH 10ML SYR IVF SCH ×2 (07:41→20:18)
[2021-02-01] MEDS: GABAPENTIN 400 MG CAPSULE PO SCH ×3 (07:42→20:18)
[2021-02-01] MEDS: CILOSTAZOL 100 MG TABLET PO SCH ×2 (07:43→20:18)
[2021-02-01] MEDS: MEMANTINE 5MG TABLET PO SCH (07:43)
[2021-02-01 13:45] VITALS: BP 151/68
[2021-02-01 18:21] VITALS: BP 117/66
[2021-02-01] MEDS: FAMOTIDINE 20 MG TABLET PO SCH (20:18)
[2021-02-01] MEDS: ATORVASTATIN 80 MG TABLET PO SCH (20:20)
[2021-02-02] MEDS: AMPICILLIN/SULBACTAM 3 GM in SODIUM CHLORIDE 0.9% 100 ML IV SCH ×4 (00:58→19:45)
[2021-02-02 01:14] VITALS: BP 121/61
[2021-02-02] MEDS: IBUPROFEN 600 MG TABLET PO PRN ×2 (04:24→10:43)
[2021-02-02 06:10] LABS: BASOPHILS % (AUTO) 1 % (0-1); EOSINOPHILS % (AUTO) 3 % (1-7); LYMPHOCYTES % (AUTO) 29 % (22-44); MEAN CORPUSCULAR HEMOGLOBIN 29.8 pg (27.0-34.8); MEAN CORPUSCULAR HGB CONC 33.4 g/dL (32.4-35.8); MEAN PLATELET VOLUME 8.1 fL (7.4-10.4); MONOCYTES % (AUTO) 11 % (2-9); NEUTROPHILS % (AUTO) 57 % (42-75); PLATELET COUNT 398 x10^3/uL (130-400); RED BLOOD COUNT 4.65 x10^6/uL (3.82-5.3); RED CELL DISTRIBUTION WIDTH 13.7 % (9.6-15.2)
[2021-02-02] MEDS: ASPIRIN 81 MG TABLET EC PO SCH (06:30)
[2021-02-02 07:35] VITALS: BP 134/81
[2021-02-02] MEDS: CILOSTAZOL 100 MG TABLET PO SCH ×2 (07:43→20:56)
[2021-02-02] MEDS: GABAPENTIN 400 MG CAPSULE PO SCH ×3 (07:44→20:56)
[2021-02-02] MEDS: MEMANTINE 5MG TABLET PO SCH (07:44)
[2021-02-02] MEDS: INSULIN LISPRO 100 UNITS/ML, PEN SQ-INSULIN SCH ×4 (07:45→20:57)
[2021-02-02] MEDS: SODIUM CHLORIDE FLUSH 10ML SYR IVF SCH ×2 (07:45→20:56)
[2021-02-02] MEDS: INSULIN GLARGINE 100 UNITS/ML, PEN SQ-INSULIN SCH ×2 (07:45→20:57)
[2021-02-02] MEDS: NICOTINE 21 MG/24 HR PATCH.TD24 TD SCH (08:11)
[2021-02-02 13:31] VITALS: BP 157/78
[2021-02-02 18:50] VITALS: BP 137/71
[2021-02-02] MEDS: FAMOTIDINE 20 MG TABLET PO SCH (20:56)
[2021-02-02] MEDS: ATORVASTATIN 80 MG TABLET PO SCH (20:58)
[2021-02-03 01:08] VITALS: BP 142/63
[2021-02-03] MEDS: AMPICILLIN/SULBACTAM 3 GM in SODIUM CHLORIDE 0.9% 100 ML IV SCH ×4 (01:30→20:00)
[2021-02-03 04:50] LABS: CHLORIDE 102 mmol/L (98-107)
[2021-02-03 04:51] LABS: BASOPHILS % (AUTO) 2 % (0-1); EOSINOPHILS % (AUTO) 3 % (1-7); LYMPHOCYTES % (AUTO) 26 % (22-44); MEAN CORPUSCULAR HEMOGLOBIN 29.7 pg (27.0-34.8); MEAN CORPUSCULAR HGB CONC 33.2 g/dL (32.4-35.8); MEAN PLATELET VOLUME 7.8 fL (7.4-10.4); MONOCYTES % (AUTO) 9 % (2-9); NEUTROPHILS % (AUTO) 61 % (42-75); PLATELET COUNT 380 x10^3/uL (130-400); RED BLOOD COUNT 4.67 x10^6/uL (3.82-5.3); RED CELL DISTRIBUTION WIDTH 13.7 % (9.6-15.2)
[2021-02-03 04:55] LABS: ANION GAP 4 mmol/L (5-15); CALCIUM 9.5 mg/dL (8.5-10.1); CREATININE 1.07 mg/dL (0.55-1.02)
[2021-02-03] MEDS: ASPIRIN 81 MG TABLET EC PO SCH (06:43)
[2021-02-03] MEDS: INSULIN LISPRO 100 UNITS/ML, PEN SQ-INSULIN SCH ×4 (09:02→20:39)
[2021-02-03] MEDS: GABAPENTIN 400 MG CAPSULE PO SCH ×3 (09:59→20:38)
[2021-02-03] MEDS: CILOSTAZOL 100 MG TABLET PO SCH ×2 (10:00→20:38)
[2021-02-03] MEDS: MEMANTINE 5MG TABLET PO SCH (10:01)
[2021-02-03] MEDS: NICOTINE 21 MG/24 HR PATCH.TD24 TD SCH (10:05)
[2021-02-03 10:38] VITALS: BP 148/89
[2021-02-03] MEDS: INSULIN GLARGINE 100 UNITS/ML, PEN SQ-INSULIN SCH ×2 (10:50→20:39)
[2021-02-03] MEDS: SODIUM CHLORIDE FLUSH 10ML SYR IVF SCH ×2 (10:50→20:38)
[2021-02-03] MEDS ORDERED: DIPHENHYDRAMINE 25 MG CAPSULE PO PRN (11:30)
[2021-02-03] MEDS ORDERED: AMPI3VIA IV (13:16)
[2021-02-03] MEDS ORDERED: INSU100I13 SQ-INSULIN (13:16)
[2021-02-03] MEDS ORDERED: INSU100I11 SQ-INSULIN (13:16)
[2021-02-03] MEDS ORDERED: ENOX40SY4 SQ (13:16)
[2021-02-03] MEDS ORDERED: POLY17PO5 PO (13:16)
[2021-02-03] MEDS ORDERED: OXYC1TAB12 PO (13:16)
[2021-02-03] MEDS ORDERED: FAMO20TA7 PO (13:16)
[2021-02-03 14:55] VITALS: BP 112/64
[2021-02-03] MEDS: ACETAMINOPHEN 325 MG TABLET PO PRN (17:24)
[2021-02-03 19:46] VITALS: BP 153/64
[2021-02-03] MEDS: FAMOTIDINE 20 MG TABLET PO SCH (20:38)
[2021-02-03] MEDS: ATORVASTATIN 80 MG TABLET PO SCH (20:43)
[2021-02-04 00:16] VITALS: BP 159/64
[2021-02-04] MEDS: morphine SULFATE 10 MG/ML, 1ML IVPush PRN ×2 (00:22→19:54)
[2021-02-04] MEDS: AMPICILLIN/SULBACTAM 3 GM in SODIUM CHLORIDE 0.9% 100 ML IV SCH ×4 (02:27→22:22)
[2021-02-04 02:49] LABS: BASOPHILS % (AUTO) 1 % (0-1); EOSINOPHILS % (AUTO) 3 % (1-7); LYMPHOCYTES % (AUTO) 24 % (22-44); MEAN CORPUSCULAR HEMOGLOBIN 29.6 pg (27.0-34.8); MEAN CORPUSCULAR HGB CONC 33.3 g/dL (32.4-35.8); MEAN PLATELET VOLUME 7.5 fL (7.4-10.4); MONOCYTES % (AUTO) 11 % (2-9); NEUTROPHILS % (AUTO) 62 % (42-75); PLATELET COUNT 385 x10^3/uL (130-400); RED BLOOD COUNT 4.52 x10^6/uL (3.82-5.3); RED CELL DISTRIBUTION WIDTH 13.6 % (9.6-15.2)
[2021-02-04 02:53] LABS: HCT (SEDRATE) 40.4 % (34.6-47.8)
[2021-02-04 03:03] LABS: ALANINE AMINOTRANSFERASE 31 U/L (12-78); ALBUMIN 1.8 g/dL (3.4-5.0); ANION GAP 4 mmol/L (5-15); CHLORIDE 104 mmol/L (98-107); CREATININE 1.03 mg/dL (0.55-1.02)
[2021-02-04 03:10] LABS: ALKALINE PHOSPHATASE 86 U/L (45-117); BILIRUBIN,TOTAL 0.3 mg/dL (0.2-1.0); TOTAL PROTEIN 6.2 g/dL (6.4-8.2)
[2021-02-04] MEDS ORDERED: MECLIZINE CHEWABLE 25 MG TAB PO ONE (04:30)
[2021-02-04] MEDS ORDERED: KETOROLAC 30 MG/1 ML IVPush ONE (04:30)
[2021-02-04 05:28] VITALS: BP 95/52
[2021-02-04 05:29] VITALS: BP 118/55
[2021-02-04] MEDS: ASPIRIN 81 MG TABLET EC PO SCH (05:36)
[2021-02-04] MEDS: INSULIN LISPRO 100 UNITS/ML, PEN SQ-INSULIN SCH ×4 (07:00→20:05)
[2021-02-04 08:33] VITALS: BP 148/81
[2021-02-04] MEDS: INSULIN GLARGINE 100 UNITS/ML, PEN SQ-INSULIN SCH ×2 (09:00→20:05)
[2021-02-04] MEDS: GABAPENTIN 400 MG CAPSULE PO SCH ×3 (09:00→20:04)
[2021-02-04] MEDS: CILOSTAZOL 100 MG TABLET PO SCH ×2 (09:00→20:04)
[2021-02-04] MEDS: NICOTINE 21 MG/24 HR PATCH.TD24 TD SCH (09:00)
[2021-02-04] MEDS: MEMANTINE 5MG TABLET PO SCH (09:00)
[2021-02-04] MEDS: SODIUM CHLORIDE FLUSH 10ML SYR IVF SCH ×2 (09:00→20:04)
[2021-02-04 19:50] VITALS: BP 145/73
[2021-02-04] MEDS: ATORVASTATIN 80 MG TABLET PO SCH (20:04)
[2021-02-04] MEDS: FAMOTIDINE 20 MG TABLET PO SCH (20:04)
[2021-02-05 01:22] VITALS: BP 149/64
[2021-02-05] MEDS: ACETAMINOPHEN 325 MG TABLET PO PRN (01:37)
[2021-02-05] MEDS: AMPICILLIN/SULBACTAM 3 GM in SODIUM CHLORIDE 0.9% 100 ML IV SCH ×2 (04:21→08:40)
[2021-02-05 06:00] LABS: BASOPHILS % (AUTO) 1 % (0-1); EOSINOPHILS % (AUTO) 3 % (1-7); LYMPHOCYTES % (AUTO) 22 % (22-44); MEAN CORPUSCULAR HEMOGLOBIN 29.8 pg (27.0-34.8); MEAN CORPUSCULAR HGB CONC 33.7 g/dL (32.4-35.8); MEAN PLATELET VOLUME 7.4 fL (7.4-10.4); MONOCYTES % (AUTO) 10 % (2-9); NEUTROPHILS % (AUTO) 65 % (42-75); PLATELET COUNT 353 x10^3/uL (130-400); RED BLOOD COUNT 4.35 x10^6/uL (3.82-5.3); RED CELL DISTRIBUTION WIDTH 13.4 % (9.6-15.2)
[2021-02-05] MEDS: ASPIRIN 81 MG TABLET EC PO SCH (07:01)
[2021-02-05 07:05] VITALS: BP 156/66
[2021-02-05] MEDS: CILOSTAZOL 100 MG TABLET PO SCH (08:40)
[2021-02-05] MEDS: MEMANTINE 5MG TABLET PO SCH (08:40)
[2021-02-05] MEDS: GABAPENTIN 400 MG CAPSULE PO SCH ×2 (08:41→16:22)
[2021-02-05] MEDS: INSULIN GLARGINE 100 UNITS/ML, PEN SQ-INSULIN SCH (08:41)
[2021-02-05] MEDS: SODIUM CHLORIDE FLUSH 10ML SYR IVF SCH (08:42)
[2021-02-05] MEDS: INSULIN LISPRO 100 UNITS/ML, PEN SQ-INSULIN SCH ×2 (08:42→14:06)
[2021-02-05] MEDS: NICOTINE 21 MG/24 HR PATCH.TD24 TD SCH (08:44)
[2021-02-05 12:08] VITALS: BP 152/67
== END 2021-02-05 16:33 | DRG 628 ==
LOC: ED 14:32 → EDIP 14:33 → ED 15:05 → 3N 17:55
PROVIDERS: ADMIT Family Medicine; ATTEND Internal Medicine
PROC: B41D1ZZ Fluoroscopy of Aorta and Bilateral Lower Extremity Arteries using Low Osmolar Contrast (ICD-10-PCS; 2021-01-29)
PROC: 047D3DZ Dilation of Left Common Iliac Artery with Intraluminal Device, Percutaneous Approach (ICD-10-PCS; principal; 2021-01-29 09:00)
PROC: 0QBP0ZX Excision of Left Metatarsal, Open Approach, Diagnostic (ICD-10-PCS; 2021-01-30)
PROC: 0L8P0ZZ Division of Left Lower Leg Tendon, Open Approach (ICD-10-PCS; 2021-01-30)
PROC: 02HV33Z Insertion of Infusion Device into Superior Vena Cava, Percutaneous Approach (ICD-10-PCS; 2021-01-31)
PROC: B548ZZA Ultrasonography of Superior Vena Cava, Guidance (ICD-10-PCS; 2021-01-31)
DX: E11.69 Type 2 diabetes mellitus with other specified complication (principal); E43 Unspecified severe protein-calorie malnutrition; E11.52 Type 2 diabetes mellitus with diabetic peripheral angiopathy with gangrene; R65.10 Systemic inflammatory response syndrome (SIRS) of non-infectious origin without acute organ dysfunction; F31.30 Bipolar disorder, current episode depressed, mild or moderate severity, unspecified; I70.262 Atherosclerosis of native arteries of extremities with gangrene, left leg; M86.172 Other acute osteomyelitis, left ankle and foot; M86.672 Other chronic osteomyelitis, left ankle and foot; M62.462 Contracture of muscle, left lower leg; E11.621 Type 2 diabetes mellitus with foot ulcer; E11.40 Type 2 diabetes mellitus with diabetic neuropathy, unspecified; E11.65 Type 2 diabetes mellitus with hyperglycemia; G47.33 Obstructive sleep apnea (adult) (pediatric); I10 Essential (primary) hypertension; E78.5 Hyperlipidemia, unspecified; F17.210 Nicotine dependence, cigarettes, uncomplicated; J44.9 Chronic obstructive pulmonary disease, unspecified; F12.90 Cannabis use, unspecified, uncomplicated; L03.032 Cellulitis of left toe; Z20.822 Contact with and (suspected) exposure to COVID-19; F41.9 Anxiety disorder, unspecified; R13.10 Dysphagia, unspecified; K43.2 Incisional hernia without obstruction or gangrene; E11.21 Type 2 diabetes mellitus with diabetic nephropathy; F03.90 Unspecified dementia, unspecified severity, without behavioral disturbance, psychotic disturbance, mood disturbance, and anxiety; K52.9 Noninfective gastroenteritis and colitis, unspecified; R79.89 Other specified abnormal findings of blood chemistry; E11.42 Type 2 diabetes mellitus with diabetic polyneuropathy; B95.1 Streptococcus, group B, as the cause of diseases classified elsewhere; E86.0 Dehydration; Z68.20 Body mass index [BMI] 20.0-20.9, adult; Z91.19 Patient's noncompliance with other medical treatment and regimen; Z90.49 Acquired absence of other specified parts of digestive tract; Z79.4 Long term (current) use of insulin; Z90.710 Acquired absence of both cervix and uterus; Z93.2 Ileostomy status
CPT/HCPCS: 36246; 36415; 36573; 37221; 70450; 71045; 75630; 76937; 80048; 80053; 80202; 81001; 82010; 82565; 82800; 82947; 82962; 83605; 83735; 84100; 84484; 84520; 85025; 85651; 86140; 87040; 87081; 87635; 88307; 88311; 93005; 96374; G0378; J0295; J1644; J1650; J1885; J2405; J2543; J2704; J2710; J2720; J3010; J3370; Q9966; C1751; C1769; C1876; C1894; J1815; J2270; J7030; J7050

== ENCOUNTER 2021-02-09 09:15 | Emergency (ER) | payer MEDICARE ==
[~2021-02-09] VITALS: Ht 170.2 cm; Wt 67.0 kg
[~2021-02-09 09:15] MED LIST changes: +AMPI3VIA IV; +ENOX40SY4 SQ; +FAMO20TA7 PO; +INSU100I11 SQ-INSULIN; +INSU100I13 SQ-INSULIN; +OXYC1TAB12 PO; +POLY17PO5 PO
[2021-02-09 09:17] VITALS: BP 172/125
--- NOTE | 2021-02-09 13:23 | NUR ---
[id number]
--- NOTE | 2021-02-09 14:09 | NUR ---
NILx2
--- NOTE | 2021-02-09 14:25 | NUR ---
NILx3
== END 2021-02-09 14:26 | disposition left against medical advice (07) ==
LOC: ED 09:46
DX: Z45.2 Encounter for adjustment and management of vascular access device (principal); Z53.21 Procedure and treatment not carried out due to patient leaving prior to being seen by health care provider

== ENCOUNTER 2021-02-13 08:50 | Emergency (ER) | payer MEDICARE ==
[~2021-02-13] VITALS: Ht 170.2 cm; Wt 66.5 kg
--- NOTE | 2021-02-13 09:23 | NUR ---
dr. cedeño at bedside to discuss poc w/ pt.
--- NOTE | 2021-02-13 09:47 | NUR ---
PER PT'S REQUEST - PICC LINE REDRESSED PER POLICY. NEW GAUZE DRESSING APPLIED TO PT'S R FOOT AFTER REMOVAL OF PT'S HOME DRESSING. PT TOLERATED WELL.
--- NOTE | 2021-02-13 09:48 | NUR ---
PT RESTING IN POSITION OF COMFORT IN [facility]. AWAITING CONSULT BY SOCIAL WORK.
--- NOTE | 2021-02-13 10:11 | NUR ---
JAVASCRIPT WEB DEVELOPER QUINTEN AT BEDSIDE.
[2021-02-13 11:18] VITALS: BP 129/65
== END 2021-02-13 11:27 | disposition home or self-care (01) ==
LOC: ED 08:57
DX: E10.621 Type 1 diabetes mellitus with foot ulcer (principal); E10.22 Type 1 diabetes mellitus with diabetic chronic kidney disease; N18.9 Chronic kidney disease, unspecified; M86.8X7 Other osteomyelitis, ankle and foot
CPT/HCPCS: 99283